=== PATIENT | female | born 1955 | race Caucasian/White ===

== ENCOUNTER 2019-02-01 14:52 | Outpatient (RCR) | payer MEDICARE, MEDICAID, SELFPAY | END 2019-02-14 00:01 | LOC: WOUND 14:52 | PROVIDERS: Family Provider Family Medicine; Visit Provider Nurse Practitioner Family | DX: T81.31XA Disruption of external operation (surgical) wound, not elsewhere classified, initial encounter (principal); Y83.8 Other surgical procedures as the cause of abnormal reaction of the patient, or of later complication, without mention of misadventure at the time of the procedure; E11.621 Type 2 diabetes mellitus with foot ulcer; L97.522 Non-pressure chronic ulcer of other part of left foot with fat layer exposed | CPT/HCPCS: 11042; 87070; 87077; 87176; 87186 ×3; 87205; G0463 ==

== ENCOUNTER 2019-02-20 08:53 | Outpatient (RCR) | payer MEDICARE, MEDICAID, SELFPAY | END 2019-03-17 23:59 | disposition home or self-care (01) | LOC: WOUND 08:53 | PROVIDERS: Family Provider Family Medicine; PCP Family Medicine; Visit Provider Nurse Practitioner Family | DX: T81.31XA Disruption of external operation (surgical) wound, not elsewhere classified, initial encounter (principal); Y83.8 Other surgical procedures as the cause of abnormal reaction of the patient, or of later complication, without mention of misadventure at the time of the procedure; I96 Gangrene, not elsewhere classified; E11.621 Type 2 diabetes mellitus with foot ulcer; L97.522 Non-pressure chronic ulcer of other part of left foot with fat layer exposed | CPT/HCPCS: 11042; J2250 ==

== ENCOUNTER 2019-03-15 09:36 | Inpatient (IN) | payer MEDICARE, MEDICAID, SELFPAY ==
[2019-03-15] VITALS (50 sets, daily range): BP systolic 59–115; BP diastolic 38–72; PULSE 54–198; RESP 14–30; TEMP 36.1–36.8; O2SAT 99–100; BMI 37.8
--- NOTE | 2019-03-15 09:37 | ED_ITS ---
Entered by Bridgette Yanez, acting as scribe for HPI - General Adult General: Chief complaint: General Medical Stated complaint: post op bleed History of Present Illness: HPI narrative: 63 yo female presents with post op bleeding. Pt had surgery about 5 days ago, pt began bleeding today. Pt is lethargic. Patient appears pale clinically is in hemorrhagic shock. There is a large amount of blood about the bed clothing and about ABDs and towels that are packed in the groin along the wound on the left groin. There is a wound VAC in the distal portion of the wound there is no active bleeding at this time. Patient is lethargic she does use some verbal short-billed her responses. She tells me she had a leg surgery several weeks ago in [place]. complaint: post op bleeding Onset (ago): hour(s) Location: lower extremity Severity: severe Review of Systems General: Reports: ROS unobtainable due to mental status Skin/Breast: Reports: changes in skin color (pale) PFS ED PFSH: Statuses (acute, chronic, etc) shown below reflect problem list status as previously entered and may not be historically accurate Medical History Accidental loss of central line (Acute) Arterial thrombosis (Acute) Chronic diastolic CHF (congestive heart failure) (Acute) Chronic venous insufficiency (Acute) COPD (chronic obstructive pulmonary disease) (Acute) Diabetic polyneuropathy associated with type 2 diabetes mellitus (Acute) Dyslipidemia (Acute) Fibromyalgia (Acute) GERD (gastroesophageal reflux disease) (Acute) Major depression, recurrent (Acute) Microcytic anemia (Acute) Multiple lung nodules on CT (Acute) PAD (peripheral artery disease) (Acute) Renovascular hypertension (Acute) Sleep apnea (Acute) Thrombocytopenia (Acute) TIA (transient ischemic attack) (Acute) Surgical History History of femoropopliteal bypass (Acute) Status post femoral-popliteal bypass surgery (Acute) Social History Smoking and tobacco status: unknown if ever smoked Alcohol intake: never Physical Exam Const: EXAM LIMITATIONS: altered mental status (lethargic) GENERAL APPEARANCE: lethargic ORIENTATION/CONSCIOUSNESS: Yes lethargic HENMT: COMMON NORMALS: normocephalic, head/scalp atraumatic and hearing grossly normal bilaterally HEAD & SCALP: normocephalic and atraumatic Eye: COMMON NORMALS: PERRL, EOMs intact bilaterally, conjunctivae normal and no scleral icterus CONJUNCTIVA: Yes conjunctivae normal PUPIL: Yes PERRL Neck/C-Spine: COMMON NORMALS: full ROM, no lymphadenopathy, supple and no JVD Lymph: LYMPHATIC: no lymphadenopathy noted and no lymphedema noted Chest: CHEST: Yes symmetrical chest wall rise Resp: COMMON NORMALS: clear to auscultation bilaterally AUSCULTATION: clear to auscultation bilaterally Cardio: COMMON NORMALS: no JVD RATE: tachycardic GI: COMMON NORMALS: soft to palpation and no hepatosplenomegaly AUSCULTATION: Yes normoactive bowel sounds PALPATION: Yes soft, No tender, No guarding and Yes no hepatosplenomegaly Extremity: NARRATIVE EXTREMITY EXAM: There is an open wound extending from the groin to the distal two thirds of the thigh there is some foam packing the edges are granulated there is a large amount of coagulated blood in the transfer sheet and in a closing around her. There is no active bleeding at this time I cannot palpate a femoral pulse very well. There is a wound VAC in the distal part of the incision. Neuro: SENSORIUM/ORIENTATION: Yes lethargic Skin: COMMON NORMALS: no rashes or lesions noted GENERAL SKIN EXAM: no rashes or lesions noted and pallor Procedures Central Line Placement Left IJ: Time Out Performed: No Patient Placed on Monitor/Pulse Ox: Yes MD Prep: mask, gown and gloves Central Line Prep: Chlorhexidine scrub and sterile drapes applied Local Anesthetic: lidocaine 1% Ultrasound Used for Placement: Yes Central Line Lumen Inserted: triple Post Procedure: sutured in place, good blood return, all ports aspirated, flushed, capped and sterile dressing applied Complications: none Additional Comments: The patient's overall condition chest x-ray was not able to be done while she was in the emergency room that I could review to confirm placement. Course ED course: Patient was initially resuscitated with blood products and a normal saline. Central line placed see the note. Dr. Miller and Dr. Naylor consulted once patient resuscitation was adequate it was decided to bring patient to the Hydrology Technician directly from the ER to do an aortic lower extremity runoff CT they can identify the problem. At the same time my scribe in the ER worked in securing old records so we would have a better understanding of what surgery she had. Vital Signs: Vital signs: Vital Signs Temperature 104.2 F H 03/16/19 17:45 Pulse Rate 0 L 03/17/19 03:50 Respiratory Rate 0 L 03/17/19 03:50 Blood Pressure 71/37 03/16/19 22:30 Pulse Oximetry 0 L 03/17/19 03:50 MDM - General Adult Lab Data: Labs: Lab Results 03/15/19 03/15/19 03/15/19 Range/Units 09:35 09:35 09:35 WBC 18.0 H (4.0-10.0) 10^3/ uL RBC 2.80 L (4.1-5.3) 10^6/u L Hgb 7.4 L (11.5-15.3) g/dL Hct 25.6 L (37.0-47.0) % MCV 91.4 (81-99) fL MCH 26.4 L (28.0-34.0) pg MCHC 28.9 L (30.0-36.0) g/dL RDW 18.0 H (12.1-15.1) % Plt Count 417 H (130-400) 10^3/c mm MPV 10.2 (7.4-10.4) fL Neut % (Auto) 63.7 % Lymph % (Auto) 26.5 % [place] % (Auto) 8.4 % Eos % (Auto) 0.0 % Baso % (Auto) 0.4 % Neut # (Auto) 11.5 H (1.8-7.7) 10^3/u L Lymph # (Auto) 4.8 (0.8-4.8) 10^3/u L [place] # (Auto) 1.5 H (0.2-0.9) 10^3/u L Eos # (Auto) 0.0 (0.0-0.8) 10^3/u L Baso # (Auto) 0.1 (0.0-0.1) 10^3/u L Nucleated RBC % (a uto) 0.1 % Nucleated RBCs # 0.0 /100WBC PT 15.30 H (10.5-13.3) SECO NDS INR 1.17 (0.8-1.2) APTT 26.7 (23.9-36.7) SECO NDS Sodium (136-145) mmol/L Potassium (3.5-5.1) mmol/L Chloride (98-107) mmol/L Carbon Dioxide (22-29) mmol/L Anion Gap (5-19) BUN (8-23) mg/dL Creatinine (0.5-0.9) mg/dL GFR Calculation (90-130) mL/min Glucose (74-106) mg/dL Calculated Osmolal ity (285-295) mOsm/k g Calcium (8.5-10.5) mg/dL Blood Type AB Positive Antibody Screen Positive Antibody Identific ation Anti-E Antigen Identifica tion E Antigen - NEGAT SHERLY Crossmatch See Detail 03/15/19 Range/Units 09:35 WBC (4.0-10.0) 10^3/ uL RBC (4.1-5.3) 10^6/u L Hgb (11.5-15.3) g/dL Hct (37.0-47.0) % MCV (81-99) fL MCH (28.0-34.0) pg MCHC (30.0-36.0) g/dL RDW (12.1-15.1) % Plt Count (130-400) 10^3/c mm MPV (7.4-10.4) fL Neut % (Auto) % Lymph % (Auto) % [place] % (Auto) % Eos % (Auto) % Baso % (Auto) % Neut # (Auto) (1.8-7.7) 10^3/u L Lymph # (Auto) (0.8-4.8) 10^3/u L [place] # (Auto) (0.2-0.9) 10^3/u L Eos # (Auto) (0.0-0.8) 10^3/u L Baso # (Auto) (0.0-0.1) 10^3/u L Nucleated RBC % (a uto) % Nucleated RBCs # /100WBC PT (10.5-13.3) SECO NDS INR (0.8-1.2) APTT (23.9-36.7) SECO NDS Sodium 136 (136-145) mmol/L Potassium 3.9 (3.5-5.1) mmol/L Chloride 91 L (98-107) mmol/L Carbon Dioxide 26 (22-29) mmol/L Anion Gap 22.9 H (5-19) BUN 24 H (8-23) mg/dL Creatinine 1.1 H (0.5-0.9) mg/dL GFR Calculation 49.8 L (90-130) mL/min Glucose 373 H (74-106) mg/dL Calculated Osmolal ity 294 (285-295) mOsm/k g Calcium 8.6 (8.5-10.5) mg/dL Blood Type Antibody Screen Antibody Identific ation Antigen Identifica tion Crossmatch Discharge Plan Discharge Patient Disposition: Admitted As Inpatient Admit Provider: Elena Layne Clinical Impression: Post-op bleeding, Status post femoral-popliteal bypass surgery, Hemorrhagic shock Condition: Stable Interventions: ED Discharge Assessment Last Done: 03/15/19 11:01 Discharge Date/Time: 03/15/19 15:17 Coding Level of Care Code ED Casting And Pasting Supervisor for Chg Fwd The documentation recorded by the Beau franco Kialy, accurately reflects the service I personally performed and the decisions made by Naveed noriega Curtis L, Mar 15, 2019 09:36
[2019-03-15] MEDS: vancomycin 1,000 MG in sodium chloride 0.9% 250 ML 250 MG IV (10:44)
[2019-03-15 10:49] LABS: INR 1.17 (0.8-1.2); Partial Thromboplastin Time 26.7 SECONDS (23.9-36.7)
[2019-03-15 10:50] LABS: Basophils # 0.1 10^3/uL (0.0-0.1); Basophils % 0.4 %; Hematocrit 25.6 % (37.0-47.0); Hemoglobin 7.4 g/dL (11.5-15.3); Lymphocytes # 4.8 10^3/uL (0.8-4.8); Lymphocytes % 26.5 %; Mean Corpuscular HGB Conc 28.9 g/dL (30.0-36.0); Mean Corpuscular Hemoglobin 26.4 pg (28.0-34.0); Mean Corpuscular Volume 91.4 fL (81-99); Mean Platelet Volume 10.2 fL (7.4-10.4); Monocytes # 1.5 10^3/uL (0.2-0.9); Monocytes % 8.4 %; Neutrophils # 11.5 10^3/uL (1.8-7.7); Neutrophils % 63.7 %; Nucleated Red Blood Cells % 0.1 %; Platelet Count 417 10^3/cmm (130-400)
[2019-03-15 10:55] LABS: Anion Gap 22.9 (5-19); Blood Urea Nitrogen 24 mg/dL (8-23); Calcium 8.6 mg/dL (8.5-10.5); Carbon Dioxide 26 mmol/L (22-29); Chloride 91 mmol/L (98-107); Glomerular Filtration Rate 49.8 mL/min (90-130); Glucose 373 mg/dL (74-106); Osmolality Calculated 294 mOsm/kg (285-295); Potassium 3.9 mmol/L (3.5-5.1); Sodium 136 mmol/L (136-145)
--- NOTE | 2019-03-15 14:16 | PM.HP ---
Providers/Chief Complaint Admitting Physician: Angela Primary Care Provider: Consuelo England DO Chief Complaint: post op bleed History of Present Illness Shelby Contreras is a 63 year old female who presented to the emergency room this morning with acute bleeding from her left groin. She is status post left femoral to distal popliteal bypass on January 23. Apparently, she developed wound breakdown and underwent initial debridement about 5 days postop. She also underwent further debridement on March 06. She was discharged to home 2 days ago on March 13. Wound VAC dressing change was performed by home health services yesterday. According to her , when she awoke this morning after breakfast, while sitting on the couch, she developed acute bleeding from her left groin. This was described as extensive. EMS was called and she presented to the emergency department. Initial blood pressure by EMS on site was 60mmHg and again was the same upon arrival to the ER. Acute resuscitation was performed as well as direct pressure being held in the left groin region where a wound VAC dressing was in place. Vernon-Synephrine was administered as well as type specific blood. I was called urgently by Dr. Lucio from the ER staff for acute evaluation. After initial rapid inspection, I recommended proceeding to the catheterization laboratory to determine the site of bleeding and possibly providing endovascular occlusion if so required. I consulted with my colleague Dr. Layne who was gracious enough to help expedite this. Remainder of my review of systems and family history as well as past history is obtained from chart review and discussions with the family. Ms. Contreras was not capable of providing any further information as she was in near extremis. This history and physical dictation is performed post procedure as presentation and proceeding to the catheterization laboratory and symptom aspiration was performed and a rapid and flowing fashion. Review of Systems General: Reports: ROS unobtainable due to medical condition (I did confer with her post procedure. Her activities are limited.) Medications/Allergies Allergies Allergy/AdvReac Type Severity Reaction Status Date / Time adhesive tape Allergy Unknown Verified 02/16/19 12:33 Penicillins Allergy Unknown Verified 02/16/19 12:33 scopolamine Allergy Unknown Verified 02/16/19 12:33 PFSH Acute PFSH: Statuses (acute, chronic, etc) shown below reflect problem list status as previously entered and may not be historically accurate Medical History (Updated 03/15/19 @ 14:25 by Kd Miller MD) Arterial thrombosis (Acute) Chronic diastolic CHF (congestive heart failure) (Acute) Chronic venous insufficiency (Acute) COPD (chronic obstructive pulmonary disease) (Acute) Diabetic polyneuropathy associated with type 2 diabetes mellitus (Acute) Dyslipidemia (Acute) Fibromyalgia (Acute) GERD (gastroesophageal reflux disease) (Acute) Major depression, recurrent (Acute) Microcytic anemia (Acute) Multiple lung nodules on CT (Acute) PAD (peripheral artery disease) (Acute) Renovascular hypertension (Acute) Sleep apnea (Acute) Thrombocytopenia (Acute) TIA (transient ischemic attack) (Acute) Surgical History (Updated 03/15/19 @ 14:23 by Kd Miller MD) History of femoropopliteal bypass (Acute) Status post femoral-popliteal bypass surgery (Acute) Social History (Updated 02/21/19 @ 13:48 by Huong Echeverria LPN) Smoking and tobacco status: unknown if ever smoked Alcohol intake: never Vitals/I&O/Wt Last Vital Signs Pulse 54 L 03/15/19 11:01 Resp 16 03/15/19 13:58 BP 115/72 03/15/19 11:01 Pulse Ox 99 03/15/19 11:01 Weight last 48 hrs Weight 220 lb Physical Exam Narrative: EXAM NARRATIVE: Initial preoperative exam was performed very quickly while the patient was on the catheterization laboratory table being prepared for anesthesia and subsequent induction for planned angiography and groin exploration. She has an extensive wound VAC in place from the knee up to the left groin region with active bleeding which is feel the wound VAC container. Direct pressure is being held for control during resuscitative efforts. This is a dire situation. Urinary Catheter Management^: Kaye: Cath Placed During This Visit: no Data : 03/15/19 09:35 03/15/19 09:35 A&P Assessment and plan (1) Post-op bleeding: Postop bleeding left groin status post left femoropopliteal bypass, postop day #20. Acute nature bleeding requires urgent angiography and exploration. This was discussed very frankly with the and family who provided consent. Status: Acute (2) Status post femoral-popliteal bypass surgery: 20 days status post left femoral-popliteal bypass with vein angioplasty with subsequent wound dehiscence and now postop bleeding Status: Acute Code(s): Z95.828 - Presence of other vascular implants and grafts Attestations Medical Necessity Statement*: Extensive postop bleeding postop day #20 status post left femoropopliteal bypass Time Spent in Patient Care: Greater than 35 minutes Coding Level of Care Code Acute Livestock Feeder for Jonathang Fwd Diagnoses Post-op bleeding Status post femoral-popliteal bypass surgery Z95.828
[2019-03-15] MEDS: midazolam 1 mg/mL INJ 2 mL IVP (14:24)
--- NOTE | 2019-03-15 14:26 | P.ANES_ITS ---
Pre-Anesthetic Assessment Pre-Anesthetic Assessment: Height/Weight: Height 1.63 m Weight 99.79 kg Pulse Resp BP Pulse Ox 54 L 16 115/72 99 03/15/19 11:01 03/15/19 13:58 03/15/19 11:01 03/15/19 11:01 Preop Diagnosis: Post op bleed Proposed Procedure: Operation Date: 03/15/19 10:00 Proposed Procedures p Peripheral Diagnostic(Not Applicable) - Elena Layne MD Operation Date: 03/15/19 11:00 Proposed Procedures p Femoral-Popliteal Artery Bypass(Not Applicable) - Kd Miller MD Familial anesthetic complications: unable to ascertain Last intake: unable to ascertain Exam: Additional Exam Findings (including area of procedure): Altered mental status Airway: Additional comments: unable to ascertain Pulmonary: Pulmonary: COPD and Sleep apnea CV/HEM: CV/HEM: CHF, HTN and PVD Metabolic: Metabolic: DM and Morbid obesity Anesthetic Plan: ASA status: V Anesthesia: General Other: Emergency bleed from fem-pop site; patient presented to ER with altered mental status and probable 1+ L blood loss. Central line in placed in ER, 18 IV in placed in ER, blood running through 18 g IV in ER, levo drip on. Risk of > 500 ml blood loss (7ml/kg in children): Yes, adequate IV access and fluids planned Other Pertinent Information: Will plan for RSI and A-line placement Meds/Allergies Current Medications: Current Medications Generic Name Dose Route Start Last Admin Trade Name Freq PRN Reason Stop Dose Admin Norepinephrine Bit artrate 4 mg 254 mls @ 0 mls/h r 03/15/19 09:45 03/15/19 10:59 / Dextrose IV 2 mcg/min .Q0M PATIENCE 7.6 mls/hr Administration Protocol Per Protocol Midazolam HCl 1 mg 03/15/19 14:15 03/15/19 14:24 Versed IVP 1 mg ONCE PRN Administration AGITATION PFSH Anesthesia PFSH: Medical History (Updated 03/15/19 @ 14:25 by Kd Miller MD) Arterial thrombosis (Acute) Chronic diastolic CHF (congestive heart failure) (Acute) Chronic venous insufficiency (Acute) COPD (chronic obstructive pulmonary disease) (Acute) Diabetic polyneuropathy associated with type 2 diabetes mellitus (Acute) Dyslipidemia (Acute) Fibromyalgia (Acute) GERD (gastroesophageal reflux disease) (Acute) Major depression, recurrent (Acute) Microcytic anemia (Acute) Multiple lung nodules on CT (Acute) PAD (peripheral artery disease) (Acute) Renovascular hypertension (Acute) Sleep apnea (Acute) Thrombocytopenia (Acute) TIA (transient ischemic attack) (Acute) Surgical History (Updated 03/15/19 @ 14:23 by Kd Miller MD) History of femoropopliteal bypass (Acute) Status post femoral-popliteal bypass surgery (Acute) Social History (Updated 02/21/19 @ 13:48 by Huong Echeverria LPN) Smoking and tobacco status: unknown if ever smoked Alcohol intake: never Data Anesthesia CBC & Chem 7: 03/15/19 09:35 03/15/19 09:35 Other Labs: Laboratory Results - last 48 hr 03/15/19 03/15/19 03/15/19 09:35 09:35 09:35 WBC 18.0 H RBC 2.80 L Hgb 7.4 L Hct 25.6 L MCV 91.4 MCH 26.4 L MCHC 28.9 L RDW 18.0 H Plt Count 417 H MPV 10.2 Neut % (Auto) 63.7 Lymph % (Auto) 26.5 [place] % (Auto) 8.4 Eos % (Auto) 0.0 Baso % (Auto) 0.4 Neut # (Auto) 11.5 H Lymph # (Auto) 4.8 [place] # (Auto) 1.5 H Eos # (Auto) 0.0 Baso # (Auto) 0.1 Nucleated RBC % (auto) 0.1 Nucleated RBCs # 0.0 PT 15.30 H INR 1.17 APTT 26.7 Sodium Potassium Chloride Carbon Dioxide Anion Gap BUN Creatinine GFR Calculation Glucose Calculated Osmolality Calcium Blood Type AB Positive Antibody Screen Positive Antibody Identification Anti-E Antigen Identification E Antigen - NEGATIVE Crossmatch See Detail 03/15/19 09:35 WBC RBC Hgb Hct MCV MCH MCHC RDW Plt Count MPV Neut % (Auto) Lymph % (Auto) [place] % (Auto) Eos % (Auto) Baso % (Auto) Neut # (Auto) Lymph # (Auto) [place] # (Auto) Eos # (Auto) Baso # (Auto) Nucleated RBC % (auto) Nucleated RBCs # PT INR APTT Sodium 136 Potassium 3.9 Chloride 91 L Carbon Dioxide 26 Anion Gap 22.9 H BUN 24 H Creatinine 1.1 H GFR Calculation 49.8 L Glucose 373 H Calculated Osmolality 294 Calcium 8.6 Blood Type Antibody Screen Antibody Identification Antigen Identification Crossmatch Cardiac Studies: No Data to Display
--- NOTE | 2019-03-15 14:29 | PM.OP ---
Operative Report Date of procedure: 03/15/19 Pre-op Diagnosis: Postop left femoropopliteal bypass with bleeding Post-op diagnosis: same Procedure Done: Left groin exploration with suture control of active bleeding Pathology: none sent Surgeon: Kd Miller Anesthesia: General Estimated blood loss (mL): 500 Tourniquet time: and they agreed for us to proceed. Findings: Active bleeding from a vein patch angioplasty Condition: critical Disposition: ICU Brief History: 53-year-old short statured, obese, diabetic female who is now 20 days status post repeat groin exploration and left femoropopliteal bypass with vein angioplasty utilizing a 6 mm PTFE graft. Patient developed wound dehiscence and subsequently required wound VAC placement and debridements x2 postop. She was discharged home 2 days ago and noted market bleeding this morning from the left groin requiring direct pressure by her as EMS was called. She presented to the ER in dire situation with a blood pressure of 60. She underwent aggressive resuscitation and we were consulted urgently. We recommended formal exploration as well as angiography, all to be performed in the catheterization laboratory. The difficult situation was frankly discussed with and family Procedure: Patient was taken to catheterization laboratory where she underwent general trach anesthesia by Dr. Cabrera from anesthesia department. Left radial arterial line was placed. Appropriate IVs were confirmed. She began receiving packed RBCs after induction and during prepping. Initially, Dr. Layne performed via a right femoral approach aorto angiography and angiography of the left femoral region. There was no sreekanth evidence for extravasation though there was some enlargement at the anastomosis proximally, consistent with a probable patch angioplasty. At the time that we initiate the procedure, we had not received operative reports from [facility]. Following this, with the sheath still in place, I elected to remove the left groin thigh and leg wound VAC where we carefully inspected, particularly groin region, the expected area for bleeding. There was some thrombus removed though with careful inspection other than a rather robust granulation tissue, I could not identify any active bleeding. There was a palpable pulse in the region. This wound was very carefully inspected, handheld irrigation performed, and a wound VAC replaced. As we were finishing replacement wound VAC, active bleeding began occurring again as noted in the wound VAC container. This was there. When she was emerging from anesthesia and had a systolic blood pressure that reached 200 mmHg. At this point, Dr. Cabrera was able to obtain control of her blood pressure with the use of hydralazine. Dr. Layne performed repeat angiography which again showed no sreekanth extravasation though clearly she had substantial bleeding as noted from the wound VAC itself. I again reexplored in the left groin region where upon inspection I could notes active bleeding coming from around the proximal anastomosis, probably at the junction with the vein patch angioplasty. There is substantial granulation tissue at his region and I did not want to further disrupt this area for fear that by totally disrupted and anastomosis. With digital pressure, I placed a #5 Ciara catheter through the area of bleeding into the distal external iliac, and with inflation there was much better control of proximal bleeding. I then performed repair of this bleeding site utilizing 5-0 and 6-0 Prolene suture. The Ciara catheter was removed prior to securing the suture line. Hemostasis was immediately obtained at this time. Wounds were carefully irrigated. I performed positional movement challenges with the left leg with no further evidence for bleeding. After careful irrigation and careful inspection, a second wound VAC was then reapplied. Ms. Contreras was confirmed to be stable and was then transferred to the ICU in critical condition. I did senior counsel very frankly with her and family after the procedure. We will plan to continue with antibiotic therapy and careful observation overnight. I do think she would benefit from [facility] care at discharge which I think would be a safer environment the returning home. Wound VAC dressing changes did require substantial effort with 2-3 people I think this will be difficult to perform in a home setting with home health nursing services.
[2019-03-15] MEDS: lactated ringers 1,000 ML 100 ML IV (14:44)
[2019-03-15 14:46] LABS: ABG PCO2 34.5 mmHg (35-45); ABG PH Result 7.39 (7.35-7.45); Alveolar-Arterial Oxygen Gradi 430.8 mmHg (5-10); Arterial Blood Gas Hematocrit 24.9 % (37-47); Base Excess ABG -3.8 mmol/L (-2.0-2.0); Blood Gas Sample Type Arterial; Blood Gas Tidal Volume 0.5; HCO3 ABG 20.7 mmol/L (22-26); Ionized Calcium Level - ABG 1.1 mmol/L (1.1-1.4); Methemoglobin 0.5 % (0.4-1.5); Oxygen Device VENT; Potassium Level - ABG 4.4 mmol/L (3.5-5.0); Total Hemoglobin 8.1 g/dL (12-16)
[2019-03-15] MEDS: atorvastatin 40 mg Tablet 20 MG PO (15:57)
[2019-03-15] MEDS: ARIPiprazole 2 mg Tablet PO (16:01)
[2019-03-15] MEDS: propofol 1,000 MG/100 ML INJ 3 MG IV (16:14)
[2019-03-15 17:20] LABS: Glucose Point of Care 303 mg/dL (70-110)
[2019-03-15 18:36] LABS: Hematocrit 27.9 % (37.0-47.0)
[2019-03-15] MEDS: sodium chloride 0.9% 100 ML (19:23)
[2019-03-15 20:37] LABS: ABG PCO2 21.2 mmHg (35-45); Alveolar-Arterial Oxygen Gradi 65.3 mmHg (5-10); Arterial Blood Gas Hematocrit 26.6 % (37-47); Base Excess ABG -19.7 mmol/L (-2.0-2.0); Blood Gas Sample Type Arterial; Blood Gas Tidal Volume 0.5; Carboxyhemoglobin 0.9 %THgb (0.4-20.1); HCO3 ABG 7.4 mmol/L (22-26); HGB O2 Sat 98.4 % (95-100); Methemoglobin 0.3 % (0.4-1.5); Oxygen Device VENT; Oxygen Saturation ABG 99.6; Potassium Level - ABG 6.3 mmol/L (3.5-5.0); Total Hemoglobin 8.7 g/dL (12-16)
[2019-03-15 20:45] LABS: ABG PH Result 7.15 (7.35-7.45)
--- NOTE | 2019-03-15 20:46 | XRR_ITS ---
PROCEDURE INFORMATION: Exam: XR Chest, 1 View Exam date and time: 03/15/2019 8:47 PM Age: 63 years old Clinical indication: Device placement; Other: Central line; Additional info: Change TECHNIQUE: Imaging protocol: XR of the chest Views: 1 view. COMPARISON: CR Chest 1 [place] [id number] 07/14/2018 11:32 AM FINDINGS: Tubes, catheters and devices: Intubation with tip 3.1 cm above the benjie. NG tube tip in the mid stomach. Lungs: Calcified granulomas in the left lung base and left hilum. Mild atelectasis or scar in the central left lung. The right lung is clear. Pleural space: Unremarkable. No pleural effusion. No pneumothorax. Heart/Mediastinum: Unremarkable. No cardiomegaly. Bones/joints: Unremarkable. XR/XR chest 1V portable [id number] IMPRESSION: No acute findings.
--- NOTE | 2019-03-15 21:25 | PM.OP ---
Operative Report Date of procedure: 03/15/19 Pre-op Diagnosis: Postop left femoropopliteal bypass with bleeding Post-op diagnosis: same Procedure Done: Right femoral vein triple-lumen central line catheter placement Pathology: none sent Surgeon: Kd Miller Anesthesia: None Complications: None Condition: critical Disposition: ICU Brief History: 63-year-old female who earlier today underwent left groin exploration for acute bleeding status post left femoral-popliteal bypass on February 23 with subsequent wound dehiscence and debridement x2 with a wound VAC in place. She was discharged to home from [facility] on Wednesday. She had a wound VAC dressing change yesterday. She presented to the ER today with market hemorrhage requiring direct pressure and medical resuscitation. A left neck central line was placed by ER staff. She was simply taken operating room where she underwent expiration and and control of bleeding from what appears to probably be an angioplasty of the left common femoral artery. She has been doing recently well in the ICU but but but then developed a precipitous drop in blood pressure along with tachycardia. Fluids were increased and pressor agents were initiated without improvement. Our colleague Dr. Gibson from our hospital service was asked to review a chest x-ray that was obtained by the nursing service and he was concerned that of the central line not being visualized. Upon my arrival, her pressure was in the 60s. I concur with his assessment and we rapidly plan for placement of a right femoral line to allow for further central vascular access. This is being done under emergent condition. Procedure: TYPE OF PLACEMENT: Central WHERE INSERTED: Left femoral vein TUNNELED: No IMAGING UTILIZED: None ANESTHESIA: None REASON FOR PLACEMENT: Loss of central vascular access DESCRIPTION OF PROCEDURE PLACEMENT: All necessary supplies were available prior to start. Hand hygiene was performed prior to starting. Maximum barrier technique including hat, mask, sterile gown, and sterile gloves was utilized by all at the sterile field. Site was was prepped with chlorhexidine and a head to toe drape was placed. Using standard technique, due to the emergent nature and need for vascular access, the right femoral vein was accessed and A wire was then advanced without difficulty. A small incision was then made to facilitate the dilator over which the catheter was placed. The wire was then removed. The catheter was threaded its entire length. All ports were then aspirated showing venous return and were each then flushed with sterile normal saline. The catheter was then sutured in place and a Tegaderm was used to cover the insertion site. Patient tolerated the procedure without difficulty or complication. We immediately began administration of fluids along with packed RBCs and reinitiation of Levophed with prompt rise of her blood pressure from the mid 60s to the low 90s. Sterile dressings were applied. I have stopped reviewed the chest x-ray which is recent been obtained which does not reveal visualization of the left neck line, therefore I removed it. I have counseled with the family.
--- NOTE | 2019-03-15 21:31 | PM.PN ---
Subjective Subjective: Interval history: I was contacted by nursing service evening as Ms. Contreras blood pressure has been steadily decreasing despite fluids, packed RBCs, and Levophed. We are concerned that the left neck line has been dislodged and retracted and no longer providing central vascular access. Chest x-ray was reviewed by Dr. Gisbon who also was quite concerned about this. I elected to rapidly place a right femoral vein triple-lumen catheter with administration of our fluids and pressor agents through this access, with rapid improvement of her hemodynamics. Vitals/I&O/Wt Last Vital Signs Temp 97.9 F 03/15/19 21: Pulse 105 H 03/15/19 21: Resp 28 H 03/15/19 21: BP 84/57 03/15/19: Pulse Ox 100 03/15/19 21:26 03/15/19 03/15/19 03/15/19 06:59 14:59 22:59 Intake Total 350.3 / 350.3 Output Total 150 / 150 Balance 200.3 / 200.3 Weight last 48 hrs Weight 220 lb Physical Exam Neck/C-Spine: OTHER: There is swelling of the left side the neck with early ecchymosis noted. This would be consistent with possible fluid extravasation from a dislodged central line. Resp: COMMON NORMALS: clear to auscultation bilaterally AUSCULTATION: clear to auscultation bilaterally OTHER: Despite concerns of the left neck line, her lungs are quite clear bilaterally. Cardio: RATE: tachycardic Urinary Catheter Management^: Kaye: Cath Placed During This Visit: no Data : 03/15/19 18:15 03/15/19 09:35 A&P Assessment and plan (1) Accidental loss of central line: Decreased hemodynamics with confirmation of loss of left neck central line. Right femoral central line was placed rapidly for resuscitation. Family has been counseled. I have removed the left neck line which indeed had been distracted a substantial distance and could not be visualized on chest x-ray. Lungs are otherwise clear and cardiac silhouette is stable and normal. Currently responding well to fluid challenge and pressor agents. Status: Acute Code(s): T82.898A - Other specified complication of vascular prosthetic devices, implants and grafts, initial encounter Attestations Medical Necessity Statement*: Status post left femoral-popliteal bypass with vein angioplasty and subsequent dehiscence with acute bleeding requiring exploration earlier today Time Spent in Patient Care: Greater than 35 minutes Coding Level of Care Code Acute Loan Processing Supervisor for Chg Fwd Diagnoses Accidental loss of central line T82.898A
--- NOTE | 2019-03-15 21:44 | PM.CONSULT ---
Providers/Reason For Consult Consulting Physican/Specialty*: hospitalist Reason for Consult*: SHock Attending Physician: Kd Miller MD Primary Care Provider: Consuelo England DO History of Present Illness History of Present Illness Shelby Contreras is a 63 year old female who has a history of left femoropopliteal bypass in June 2018 and then recently developed leg pain at rest, ultrasound showed femoropopliteal bypass is occluded. She was having difficulty walking in her home from living room to the bathroom. She used a rolling chair to maneuver throughout her kitchen. Left leg is more swollen with edema and extending into the foot. recently had a left femoral popliteal bypass with venous angioplasty at [facility], had wound dehiscence, status post debridement on 03/06 was discharged home on 03/13 from [facility] with wound VAC,& home health services. Today she was sitting on her couch when she started bleeding from her left groin area (home health services recently changed her wound VAC dressing yesterday) EMS was called and she was brought to ER. She was taken straight to the OR Dr. Miller was consulted by ER, they were able to achieve appropriate hemostasis after exploration. Postoperatively she was sent to ICU, she started becoming hypotensive, while she was on norepinephrine, fluids and blood worsening at the bedside, chest x-ray was obtained which did not locate her central line, Dr. Miller evaluated the patient, placed a right femoral venous access. Her left-sided central line that was placed by ER has been dislodged and there is some extravasation of norepinephrine and subcutaneous tissue. There is no active drainage from left-sided triple-lumen. Currently she is getting blood transfusion, fluids, 1 amp of bicarb, vasopressors are being titrated off. Hospital service was requested to co-manage her. 02/23/2018 procedure at [facility] left common femoral artery exposure Left common femoral endarterectomy with vein patch angioplasty Left common femoral to below knee popliteal bypass graft with 6 mm PTFE She had postoperative wound infection excision of skin and subcutaneous tissue and debridement was done with placement of wound VAC on 03/06 2 m blood loss 100 mL Review of Systems General: Reports: ROS unobtainable due to endotracheal tube Meds/Allergies Home Medications and Allergies Home Medications Medication Instructions Recorded Confirmed Type albuterol sulfate 90 mcg/actuation 2 - 4 puff INHALATION QID PRN gm 02/21/19 02/21/19 History aerosol inhaler aripiprazole 2 mg tablet 2 mg PO ONCE 02/21/19 02/21/19 History aspirin 325 mg tablet 325 mg PO ONCE tab 02/21/19 02/21/19 History atenolol 50 mg tablet 50 mg PO ONCE tab 02/21/19 02/21/19 History blood sugar diagnostic #10 each 02/21/19 02/21/19 History citalopram 40 mg tablet 40 mg PO ONCE tab 02/21/19 02/21/19 History ferrous sulfate 325 mg (65 mg 325 mg PO ONCE tab 02/21/19 02/21/19 History iron) tablet fluticasone furoate 100 1 inh INHALATION Q24H 02/21/19 02/21/19 History mcg-vilanterol 25 mcg/dose inhalation powder furosemide 40 mg tablet 80 mg PO BID tab 02/21/19 02/21/19 History hydrocodone 5 mg-acetaminophen 325 1 tab PO Q4H PRN 02/21/19 02/21/19 History mg tablet hydroxyzine HCl 25 mg tablet 25 mg PO BID 02/21/19 02/21/19 History insulin glargine U-300 conc 300 28 unit SUBCUT ONCE 02/21/19 02/21/19 History unit/mL (3 mL) subcutaneous pen insulin lispro 100 unit/mL 10 unit SUBCUT QID ml 02/21/19 02/21/19 History subcutaneous pen ipratropium 0.5 mg-albuterol 3 mg 3 ml INHALATION BID PRN ml 02/21/19 02/21/19 History (2.5 mg base)/3 mL nebulization soln lancets 30 gauge #25 each 02/21/19 02/21/19 History meloxicam 7.5 mg tablet 7.5 mg PO BID PRN tab 02/21/19 02/21/19 History metformin 1,000 mg tablet,extended 1,000 mg PO BID 02/21/19 02/21/19 History release 24hr omega 6-msa-ubc-fish oil 1,000 mg 1 cap PO ONCE cap 02/21/19 02/21/19 History (120 mg-180 mg) capsule omeprazole 20 mg capsule,delayed 20 mg PO ONCE cap 02/21/19 02/21/19 History release polyethylene glycol 3350 17 17 gm PO BID 02/21/19 02/21/19 History gram/dose oral powder pramipexole 1 mg tablet 1 mg PO ONCE tab 02/21/19 02/21/19 History pregabalin 50 mg capsule 50 mg PO BID 02/21/19 02/21/19 History ranitidine HCl 150 mg tablet 150 mg PO ONCE PRN tab 02/21/19 02/21/19 History simvastatin 20 mg tablet 20 mg PO .QHS tab 02/21/19 02/21/19 History sitagliptin 100 mg tablet 100 mg PO ONCE 02/21/19 02/21/19 History triamterene 37.5 1 tab PO QAM 02/21/19 02/21/19 History mg-hydrochlorothiazide 25 mg tablet Allergies Allergy/AdvReac Type Severity Reaction Status Date / Time adhesive tape Allergy Unknown Verified 02/16/19 12:33 Penicillins Allergy Unknown Verified 02/16/19 12:33 scopolamine Allergy Unknown Verified 02/16/19 12:33 Current Medications Current Medications Generic Name Dose Route Start Last Admin Trade Name Freq PRN Reason Stop Dose Admin Atorvastatin Calcium 20 mg 03/15/19 16:00 03/15/19 15:57 Lipitor PO 20 mg DAILY PATIENCE Administration Lactated Ringer's 1,000 mls @ 100 mls/hr 03/15/19 15:00 03/15/19 15:02 Lactated Ringers IV Not Given .Q10H PATIENCE Propofol 1,000 mg in 100 mls @ 0 mls/hr 03/15/19 15:00 03/15/19 16:20 Diprivan IV 10 mcg/kg/min .Q0M PATIENCE 6 mls/hr Titration Protocol Per Protocol Insulin Aspart 0 unit 03/15/19 18:00 03/15/19 19:08 Novolog SUBCUT 14 unit WM&BEDTIME PATIENCE Administration Protocol Midazolam HCl 1 mg 03/15/19 14:15 03/15/19 14:24 Versed IVP 1 mg ONCE PRN Administration AGITATION PFSH Acute PFSH: Statuses (acute, chronic, etc) shown below reflect problem list status as previously entered and may not be historically accurate Medical History Accidental loss of central line (Acute) Arterial thrombosis (Acute) Chronic diastolic CHF (congestive heart failure) (Acute) Chronic venous insufficiency (Acute) COPD (chronic obstructive pulmonary disease) (Acute) Diabetic polyneuropathy associated with type 2 diabetes mellitus (Acute) Dyslipidemia (Acute) Fibromyalgia (Acute) GERD (gastroesophageal reflux disease) (Acute) Major depression, recurrent (Acute) Microcytic anemia (Acute) Multiple lung nodules on CT (Acute) PAD (peripheral artery disease) (Acute) Renovascular hypertension (Acute) Sleep apnea (Acute) Thrombocytopenia (Acute) TIA (transient ischemic attack) (Acute) Surgical History History of femoropopliteal bypass (Acute) Status post femoral-popliteal bypass surgery (Acute) Social History Smoking and tobacco status: unknown if ever smoked Alcohol intake: never Vitals/I&O/Wt Last Vital Signs Temp 97.9 F 03/15/19 21:26 Pulse 105 H 03/15/19 21:26 Resp 28 H 03/15/19 21:26 BP 84/57 03/15/19 21:26 Pulse Ox 100 03/15/19 21:26 03/15/19 03/15/19 03/15/19 06:59 14:59 22:59 Intake Total 350.3 / 350.3 Output Total 150 / 150 Balance 200.3 / 200.3 Weight last 48 hrs Weight 99.79 kg Physical Exam Narrative: EXAM NARRATIVE: Morbid obese female currently intubated and sedated She has extravasation of norepinephrine and subcutaneous tissue of her neck and upper chest At the bedside fluids are running along bicarb, blood and norepinephrine, Vernon-Synephrine which is being held off She is sinus tachycardia, heart rate fluctuating between 1 10-1 15, S1-S2 sinus tachycardia, Pedal pulses are very weak especially on the left side previous Doppler showed monophasic signals it is a bit colder as per Dr. Miller's assessment it is worsened from this morning She has a new right-sided femoral line access 1+ edema of lower extremities Sister breath sounds Abdomen obese, soft without distention Skin: Has multiple petechiae and purpura around subcutaneous neck tissue and upper chest Neuro exam could not be done Urinary Catheter Management^: Kaye: Cath Placed During This Visit: no A&P Assessment and plan (1) Post-op bleeding: Status: Acute (2) Accidental loss of central line: Status: Acute Code(s): T82.898A - Other specified complication of vascular prosthetic devices, implants and grafts, initial encounter (3) Status post femoral-popliteal bypass surgery: Status: Acute Code(s): Z95.828 - Presence of other vascular implants and grafts Additional A&P Information Hemorrhagic shock Currently hemoglobin is stable, blood pressure systolic 85/56mmhg, we were able to hold off Vernon-Synephrine, currently she is on fluids, D5 and Levophed Blood running at the bedside via right femoral vein access Monitor urine output No active bleeding from the surgical site, Because of history of MRSA positive I would use vancomycin and amikacin she is allergic to penicillin, Metabolic acidosis due to lactic acidemia Will use 1 amp of bicarb with D5 Monitor sodium Monitor lactic acid Type III respiratory failure Intubated and sedated Not ready to be weaned off because of current use of vasopressors Accidental loss of left-sided central venous access with extravasation into subcutaneous neck and upper chest area Right femoral vein has been accessed by Dr. Miller Status post revision of femoral-popliteal bypass surgery with postoperative complications with wound dehiscence and groin infection with abscess drainage, MRSA was positive Currently her left foot is colder as compared to the right, will reassess after turning off vasopressors, currently very weak pulse 1+ dorsalis pedis We will do Dopplers every day Not candidate to be on any kind of anticoagulation Currently receiving blood transfusion Close monitoring for left foot Family is receptive of patient's guarded prognosis and critical situation Consult Attestations Medical Necessity Statement: As per Dr. Miller's plan Time Spent in Patient Care: 40 Coding Level of Care Code Acute Fire Extinguisher Inspector for Chg Fwd Diagnoses Post-op bleeding Accidental loss of central line T82.898A Status post femoral-popliteal bypass surgery Z95.828
--- NOTE | 2019-03-15 22:19 | PM.MISC ---
Miscellaneous Note Purpose of Documentation: We will continue with volume resuscitation. We have been able to turn off 1 of our vasopressor agents. Systolic blood pressure is now 96 and a heart rate of 102. She is acidotic and we are preparing to give to amps of bicarbonate. We have placed a Cheetah monitor on and her cardiac index is reading 4. I have updated the family periodically throughout this resuscitation. Long-term outlook clearly remains questionable as she has had a substantial blood loss beginning early this morning with the acute hemorrhage from her left groin. Her left leg is somewhat cooler than the right though it is not mottled. This will need to be observed carefully and may be exacerbated by the repair required for the hemorrhage earlier today. It may also be worsened by the requirement for the vasopressor, which hopefully will be able to continue to decrease through the night. I do not think we can proceed with any attempts to wean the ventilator for planned extubation due to this need for continued resuscitation, hemodynamic instability, as well as probable fluid extravasation in the left neck from the retracted left neck central line. Family is aware. I answered all questions. The gravity of the situation has been clearly stated and they seem quite aware.
[2019-03-15] MEDS: sodium chloride 0.9% 100 ML 200 ML ×2 (22:23→22:24)
[2019-03-15] MEDS: albumin 12.5 GM/250 ML VIAL IV (22:24)
[2019-03-15] MEDS: pantoprazole 40 mg SDV IVP (22:25)
[2019-03-15] MEDS: sodium bicarbonate 150 MEQ in dextrose 5% 1,000 ML IV (22:35)
[2019-03-15] MEDS: phenylephrine inj 25 MG in sodium chloride 0.9% 250 ML 24.2 MG IV (22:55)
--- NOTE | 2019-03-15 23:05 | P.MISC_ITS ---
Miscellaneous Note Purpose of Documentation: Hemodynamics are about the same with a systolic blood pressure running from about 78-92. Heart rate is consistently been at around 100 which is substantially improved. Numerous family members have visited at bedside and I have counseled. We are also administering a bicarbo cira infusion currently. We will be repeating ABG and laboratory data later. We will make no plans for any substantial changes over the next 24 to 48 hours. I do expect she will have substantial fluid extravasation and third spacing and I did discuss this with the family. I do believe this will require continuous intravascular volume replacement with this ongoing capillary leak. I greatly appreciate the expertise and oversight of Dr. Gibson and our hospitalist colleagues.
[2019-03-16] VITALS (65 sets, daily range): BP systolic 53–128; BP diastolic 27–61; PULSE 0–109; RESP 20–31; TEMP 36.7–40.1; O2SAT 10–100
--- NOTE | 2019-03-16 00:27 | PC.NURSE ---
Unit [id number] and [id number] ran emergent with Dr Miller at bedside.
[2019-03-16] MEDS: albumin 12.5 GM/250 ML VIAL IV ×3 (00:56→09:48)
[2019-03-16] MEDS: morphine 4 mg/mL SDV 1 mL 2 MG IVP (02:44)
[2019-03-16 03:41] LABS: Glucose Point of Care 424 mg/dL (70-110)
[2019-03-16 03:49] LABS: Basophils # 0.1 10^3/uL (0.0-0.1); Basophils % 0.2 %; Hematocrit 30.2 % (37.0-47.0); Hemoglobin 10.1 g/dL (11.5-15.3); Lymphocytes # 1.8 10^3/uL (0.8-4.8); Lymphocytes % 6.9 %; Mean Corpuscular HGB Conc 33.4 g/dL (30.0-36.0); Mean Corpuscular Hemoglobin 28.5 pg (28.0-34.0); Mean Platelet Volume 10.5 fL (7.4-10.4); Monocytes # 1.4 10^3/uL (0.2-0.9); Monocytes % 5.4 %; Neutrophils # 22.4 10^3/uL (1.8-7.7); Neutrophils % 85.4 %; Nucleated Red Blood Cells # 0.9 /100WBC; Nucleated Red Blood Cells % 3.5 %; Platelet Count 168 10^3/cmm (130-400); Red Blood Count 3.55 10^6/uL (4.1-5.3); Red Cell Distribution Width 15.1 % (12.1-15.1); White Blood Count 26.3 10^3/uL (4.0-10.0)
--- NOTE | 2019-03-16 03:57 | PC.NURSE ---
1999 Angela notified by this RN of decreasing BP. Order for Vernon, stat EKG and stat ABG. [address] Miller notified of continued decreasing arterial and cuff BP 60's systolic. This RN concerned central line no longer in place. Given verbal order for stat xray to determine.
[2019-03-16 04:03] LABS: Anion Gap 27.6 (5-19); Blood Urea Nitrogen 32 mg/dL (8-23); Calcium 7.2 mg/dL (8.5-10.5); Carbon Dioxide 18 mmol/L (22-29); Chloride 94 mmol/L (98-107); Glomerular Filtration Rate 18.5 mL/min (90-130); Glucose 356 mg/dL (74-106); Magnesium 1.7 mg/dL (1.7-2.3); Mean Corpuscular Volume 85.1 fL (81-99); Osmolality Calculated 290 mOsm/kg (285-295); Potassium 5.6 mmol/L (3.5-5.1); Sodium 134 mmol/L (136-145)
[2019-03-16 04:22] LABS: Lactic Acid 9.9 mmol/L (0.5-2.2)
[2019-03-16 04:44] LABS: INR 3.53 (0.8-1.2)
[2019-03-16] MEDS: phenylephrine inj 25 MG in sodium chloride 0.9% 250 ML 48.5 MG IV (04:58)
[2019-03-16 05:28] LABS: ABG PCO2 22.6 mmHg (35-45); Alveolar-Arterial Oxygen Gradi 56.4 mmHg (5-10); Arterial Blood Gas Hematocrit 29.2 % (37-47); Base Excess ABG -4.2 mmol/L (-2.0-2.0); Blood Gas Sample Type Arterial; Blood Gas Tidal Volume 0.5; Carboxyhemoglobin 0.7 %THgb (0.4-20.1); HCO3 ABG 17.7 mmol/L (22-26); HGB O2 Sat 97.1 % (95-100); Ionized Calcium Level - ABG 0.9 mmol/L (1.1-1.4); Methemoglobin 0.4 % (0.4-1.5); Oxygen Device VENT; Oxygen Saturation ABG 98.2; PO2 ABG 83.8 mmHg (80.0-100.0); Potassium Level - ABG 4.7 mmol/L (3.5-5.0); Total Hemoglobin 9.5 g/dL (12-16)
[2019-03-16] MEDS: sodium bicarbonate 150 MEQ in dextrose 5% 1,000 ML IV (05:47)
--- NOTE | 2019-03-16 06:37 | PM.PN ---
Subjective Subjective: Interval history: Hemodynamics have been reasonably stable since about 9:30 PM last night. Right femoral central line appears to be working well. I have previously removed the dislodged left neck line. She has a conjugate scanning gaze, so I am somewhat concerned about her neurologic status. She is requiring pressor agents but has responded well to volume challenges and packed RBCs. No evidence for active bleeding. She has had expected detriment of her renal function and is noticed that her INR is over 3 this morning. Full ventilatory support though on room air. I have counseled with the family throughout the evening. I greatly appreciate the expertise of our hospitalist colleagues and Dr. Linares. Vitals/I&O/Wt Last Vital Signs Temp 100.4 F H 03/16/19 04:30 Pulse 90 03/16/19 04:30 Resp 27 H 03/16/19 05:40 BP 78/49 03/16/19 04:30 Pulse Ox 98 03/16/19 04:30 03/15/19 03/15/19 03/16/19 14:59 22:59 06:59 Intake Total 894.703 / 182.243 4992.323 / 2291.026 Output Total 150 / 150 10 / 160 Balance 744.703 / 801.822 5702.323 / 2131.026 Weight last 48 hrs Weight 220 lb Physical Exam Resp: COMMON NORMALS: clear to auscultation bilaterally AUSCULTATION: clear to auscultation bilaterally OTHER: Remains intubated with full ventilatory support Cardio: COMMON NORMALS: regular rate, regular rhythm and S1 normal heart sound RATE: regular rate RHYTHM: regular rhythm HEART SOUNDS: S1 normal Extremity: OTHER: Left lower extremity is warmer this morning down to the distal leg region just above the ankle. This is substantially improved as compared to last night. Currently on vancomycin and aztreonam. Wound VAC dressing remains in place. Urinary Catheter Management^: Kaye: Cath Placed During This Visit: no Data : 03/16/19 03:40 03/16/19 03:40 A&P Assessment and plan (1) Post-op bleeding: Will continue supportive measures with volume replacement and pressor support. Her outcomes clearly remains questionable. I have been very sreekanth in my conversations with family concerning this. I believe the next 24 to 48 hours will be a critical time. I greatly appreciate the expertise of our hospitalist colleagues and particularly assistance of Dr. Vijay cano. Status: Acute Attestations Medical Necessity Statement*: Acute massive hemorrhage status post left femoral-popliteal artery bypass approximately 2 weeks ago Time Spent in Patient Care: 16 - 35 minutes Coding Level of Care Code Acute Tire Design Engineer for Chg Fwd Diagnoses Post-op bleeding
[2019-03-16] MEDS: aztreonam 1,000 MG in sodium chloride 0.9% (plus) 50 ML 100 MG IV (07:57)
--- NOTE | 2019-03-16 08:17 | PM.MISC ---
Miscellaneous Note Purpose of Documentation: Dr. Gibson was of great assistance.
[2019-03-16] MEDS: pantoprazole 40 mg SDV IVP (09:47)
[2019-03-16] MEDS: pregabalin 50 mg Capsule PO (09:47)
[2019-03-16] MEDS: atorvastatin 40 mg Tablet 20 MG PO (09:48)
--- NOTE | 2019-03-16 10:11 | PC.PHAR ---
SERUM CREATININE INCREASE NEW VANCOMYCIN DOSE 1000MG Q 24 H TO START @ 03/17 229. TROUGH WILL BE ORDERED @ 03/17 129 PRIOR TO START OF NEW DOSE TO ENSURE PROPER CLEARANCE Pharmacokinetic dosing service Objective: Patient: Floor: Age: 63 yo Serum creatinine: 2.6 mg/dL Height: 64.2 Inches Weight (kg): 100 Assessment: IBW (kg): 55.16 Dosing wt(kg): 100 Estimated Creatinine clearance (ml/min): 24.9 CRCL method: Cockcroft and Gault using adjusted body weight Drug selected: Vancomycin Loading dose (mg): Vd (liters): 70.0 (factor used: 0.7 L/kg) Glen (hr-1): 0.025 Half life (hrs): 27.73 CLvanco= 1.750 L/hr Recommended dose: 1000 mg Interval: 24 hrs Infusion time (hrs): 1 Predicted peak (mcg/mL): 31.3 Predicted trough (mcg/mL): 17.61 Total body weight is being used for vancomycin dosing. Recommendations: Give Vancomycin 1000 mg q 24 hrs with an expected Cpeak of 31.3 mcg/ml and an expected Ctrough of 17.61 mcg/ml Thank you for the consult, will continue to follow.
[2019-03-16] MEDS: phenylephrine inj 25 MG in sodium chloride 0.9% 250 ML 60.6 MG IV (10:38)
[2019-03-16 11:16] LABS: Glucose Point of Care 308 mg/dL (70-110)
--- NOTE | 2019-03-16 12:00 | XR_ITS ---
WS: [id number] CHEST XRAY TECHNIQUE: Portable chest. CLINICAL INFORMATION: acute hemmorhage s/p fem-pop COMPARISON: March 15, 2019 FINDINGS: Endotracheal tube with tip approximately 1.8 cm above the benjie. Enteric tube with tip in distal sto mach. Heart: Cardiomegaly. Lungs: Lungs are clear. No consolidation or pleural effusion. Bones: Normal visualized bony structures. XR/XR chest 1V portable [id number] IMPRESSION: 1. Endotracheal tube with tip 1.8 cm above the benjie. 2. Enteric tube with tip below the diaphragm. 3. No acute pulmonary infiltrates.
[2019-03-16 12:14] LABS: Basophils % 0.2 %; Eosinophils # 0.1 10^3/uL (0.0-0.8); Eosinophils % 0.3 %; Hematocrit 25.5 % (37.0-47.0); Hemoglobin 8.5 g/dL (11.5-15.3); Lymphocytes % 16.3 %; Mean Corpuscular HGB Conc 33.3 g/dL (30.0-36.0); Mean Platelet Volume 11.5 fL (7.4-10.4); Monocytes # 1.3 10^3/uL (0.2-0.9); Monocytes % 7.3 %; Neutrophils # 13.6 10^3/uL (1.8-7.7); Neutrophils % 74.9 %; Nucleated Red Blood Cells # 1.3 /100WBC; Nucleated Red Blood Cells % 7.1 %; Platelet Count 108 10^3/cmm (130-400); Red Blood Count 2.93 10^6/uL (4.1-5.3); Red Cell Distribution Width 15.7 % (12.1-15.1); White Blood Count 18.2 10^3/uL (4.0-10.0)
[2019-03-16 12:16] LABS: ABG PH Result 7.41 (7.35-7.45); Alveolar-Arterial Oxygen Gradi 102.4 mmHg (5-10); Arterial Blood Gas Hematocrit 24.6 % (37-47); Base Excess ABG -7.9 mmol/L (-2.0-2.0); Blood Gas Sample Site ARTLINE; Blood Gas Sample Type Arterial; Blood Gas Tidal Volume 0.4; HCO3 ABG 15.8 mmol/L (22-26); HGB O2 Sat 90.6 % (95-100); Ionized Calcium Level - ABG 0.8 mmol/L (1.1-1.4); Methemoglobin 1.1 % (0.4-1.5); Oxygen Device VENT; Oxygen Saturation ABG 92.6; PO2 ABG 63.3 mmHg (80.0-100.0); Potassium Level - ABG 5.1 mmol/L (3.5-5.0)
[2019-03-16 12:31] LABS: INR 4.34 (0.8-1.2)
[2019-03-16 12:42] LABS: Anion Gap 30.6 (5-19); Blood Urea Nitrogen 49 mg/dL (8-23); Calcium 6.7 mg/dL (8.5-10.5); Carbon Dioxide 17 mmol/L (22-29); Chloride 92 mmol/L (98-107); Glomerular Filtration Rate 13.1 mL/min (90-130); Glucose 316 mg/dL (74-106); Osmolality Calculated 288 mOsm/kg (285-295); Potassium 5.6 mmol/L (3.5-5.1); Sodium 134 mmol/L (136-145)
[2019-03-16 12:42] LABS: Albumin Level 2.2 g/dL (3.5-5.2); Alkaline Phosphatase 153 IU/L (35-105); Globulin 1.8 g/dL (1.3-4.6); Total Bilirubin 0.4 mg/dL (0.15-1.2)
[2019-03-16 12:54] LABS: Alanine Aminotransferase 1958 U/L (0-33)
[2019-03-16 12:55] LABS: Slide Review Slide Review Perform
[2019-03-16 12:59] LABS: Aspartate Amino Transferase 6726 U/L (0-32)
--- NOTE | 2019-03-16 13:03 | PC.CHAP ---
Pastoral Care Encounter/Spiritual Assessment Type of Contact [] Declined needle maker visit [] Patient/Family/Request visit [] Outpatient visit [] Follow-up visit [] Physician referral [] Code/Alert [x] Routine visit [] Staff referral [] Actively dying [] Patient sleeping [] Family support [] [] Out of room [] Palliative care [] [] Receiving care in room [] Pre-surgical visit [] Trauma [] Long length of stay [] ICU visit [] Other: Relational/Emotional Strength [] Patient feels connected with others/family/visitors/staff [] Distress [] Loneliness/isolation [] Abandonment Spirituality of Patient [] Person of Linda [] Attends Uatsdin of their Linda [x] Believes in Prayer [] Reads Bible or Methodist materials [] There are Spiritual issues to be addressed Developer Designer Interventions [x] Prayer [x] Active listening [x] Non-anxious presence [x] Spiritual/emotional support [] Crisis/trauma care [] Spiritual counseling [] Bereavement support [] Provided bereavement packet [] Provided Bible/devotional materials [] Provided toy/stuffed animal, coloring book to patient or family member [] Provided Communion [] Anointing/[place] [] Salvation [x] Completed spiritual assessment [] Other: Impact on Illness or Injury [] Angry [] Fearful [] Anxious [] Often cries [] Exhaustion [] Unable to work [] Unable to attend restorationist [] Unable to walk/stand [] Unable to read [] Unable to drive [] Unable to eat/drink [] Unable to sleep [] Unable to be with family [x] Patient intubated [] Other: Summary Patient was not able to speak, spoke with Time spent with patient 5 minutes
--- NOTE | 2019-03-16 13:55 | PM.CONSULT ---
Providers/Reason For Consult Consulting Physican/Specialty*: Pulmonary critical care medicine Reason for Consult*: Multiorgan failure Attending Physician: Kd Miller MD Primary Care Provider: Consuelo England DO History of Present Illness History of Present Illness Shelby Contreras is a 63 year old female who presented to the hospital yesterday morning with active bleeding from the left femoral-popliteal arterial graft. The patient was taken to the Shortage Worker and had an angiogram performed however no active extravasation was noted. In the postop area the patient was again noted to have bleeding in the wound VAC and she underwent a repeat angiogram which again failed to reveal any active source of bleeding. However, during exploration of the wound active bleeding could be seen from the proximal anastomotic site. Control of the bleeding was obtained by sutures and the patient was then brought to the ICU. When the patient arrived in the ER her systolic blood pressure was in the 60s. When EMS arrived at her home after her called with her losing blood, her systolic blood pressure was also found to be in the 60s. Overnight, the patient was resuscitated with IV fluid, blood products and required pressor support to obtain adequate blood pressure. The patient however has not made any significant urine since she was brought to the ICU. The blood work this morning is consistent with multiorgan failure with significant lactic acidosis. I was asked to evaluate the patient. I had seen and examined the patient in ICU today. The family is at bedside. I had also reviewed the case with the other providers. The patient was on 14 mcg/min of norepinephrine and 120 mcg of phenylephrine with a systolic blood pressure in the 70s. She was also receiving IV fluid at 150 cc an hour. The patient was on volume control mode and was breathing over the vent with a minute ventilation of about 12 L. The patient has also been seen to have bilateral nystagmus with the fast component towards the right and a slow component towards the left. The patient is unresponsive to any pain or vocal stimulus. The patient had not received any significant amount of sedation. The patient is 4.7 L positive since yesterday. I had performed a bedside ultrasound. The patient does not have any significant B-lines, has good ejection fraction without any evidence of right ventricular dilation or dysfunction. The patient has an A-line however the pulse pressure variation could not be assessed because of the patient being active and generating negative inspiratory pressure. Review of Systems Narrative: Unable to obtain because of the patient's clinical condition Meds/Allergies Home Medications and Allergies Home Medications Medication Instructions Recorded Confirmed Type albuterol sulfate 90 mcg/actuation 2 - 4 puff INHALATION QID PRN gm 02/21/19 02/21/19 History aerosol inhaler aripiprazole 2 mg tablet 2 mg PO ONCE 02/21/19 02/21/19 History aspirin 325 mg tablet 325 mg PO ONCE tab 02/21/19 02/21/19 History atenolol 50 mg tablet 50 mg PO ONCE tab 02/21/19 02/21/19 History blood sugar diagnostic #10 each 02/21/19 02/21/19 History citalopram 40 mg tablet 40 mg PO ONCE tab 02/21/19 02/21/19 History ferrous sulfate 325 mg (65 mg 325 mg PO ONCE tab 02/21/19 02/21/19 History iron) tablet fluticasone furoate 100 1 inh INHALATION Q24H 02/21/19 02/21/19 History mcg-vilanterol 25 mcg/dose inhalation powder furosemide 40 mg tablet 80 mg PO BID tab 02/21/19 02/21/19 History hydrocodone 5 mg-acetaminophen 325 1 tab PO Q4H PRN 02/21/19 02/21/19 History mg tablet hydroxyzine HCl 25 mg tablet 25 mg PO BID 02/21/19 02/21/19 History insulin glargine U-300 conc 300 28 unit SUBCUT ONCE 02/21/19 02/21/19 History unit/mL (3 mL) subcutaneous pen insulin lispro 100 unit/mL 10 unit SUBCUT QID ml 02/21/19 02/21/19 History subcutaneous pen ipratropium 0.5 mg-albuterol 3 mg 3 ml INHALATION BID PRN ml 02/21/19 02/21/19 History (2.5 mg base)/3 mL nebulization soln lancets 30 gauge #25 each 02/21/19 02/21/19 History meloxicam 7.5 mg tablet 7.5 mg PO BID PRN tab 02/21/19 02/21/19 History metformin 1,000 mg tablet,extended 1,000 mg PO BID 02/21/19 02/21/19 History release 24hr omega 6-ien-jij-fish oil 1,000 mg 1 cap PO ONCE cap 02/21/19 02/21/19 History (120 mg-180 mg) capsule omeprazole 20 mg capsule,delayed 20 mg PO ONCE cap 02/21/19 02/21/19 History release polyethylene glycol 3350 17 17 gm PO BID 02/21/19 02/21/19 History gram/dose oral powder pramipexole 1 mg tablet 1 mg PO ONCE tab 02/21/19 02/21/19 History pregabalin 50 mg capsule 50 mg PO BID 02/21/19 02/21/19 History ranitidine HCl 150 mg tablet 150 mg PO ONCE PRN tab 02/21/19 02/21/19 History simvastatin 20 mg tablet 20 mg PO .QHS tab 02/21/19 02/21/19 History sitagliptin 100 mg tablet 100 mg PO ONCE 02/21/19 02/21/19 History triamterene 37.5 1 tab PO QAM 02/21/19 02/21/19 History mg-hydrochlorothiazide 25 mg tablet Allergies Allergy/AdvReac Type Severity Reaction Status Date / Time adhesive tape Allergy Unknown Verified 02/16/19 12:33 Penicillins Allergy Unknown Verified 02/16/19 12:33 scopolamine Allergy Unknown Verified 02/16/19 12:33 Current Medications Current Medications Generic Name Dose Route Start Last Admin Trade Name Freq PRN Reason Stop Dose Admin Propofol 1,000 mg in 100 mls @ 0 mls/hr 03/15/19 15:00 03/16/19 07:43 Diprivan IV 0 mcg/kg/min .Q0M PATIENCE 0 mls/hr Titration Protocol Per Protocol Vasopressin 40 unit/ Sodium 40 mls @ 0.03 mls/min 03/16/19 12:30 03/16/19 12:41 Chloride IV 1.8 mls/min CONT PATIENCE Administration Fentanyl 1,000 mcg/ Sodium 100 mls @ 0 mls/hr 03/16/19 12:45 03/16/19 13:00 Chloride IV 1 mcg/hr .Q0M PATIENCE 0.1 mls/hr Administration Protocol Per Protocol Pantoprazole Sodium 40 mg 03/15/19 21:30 03/16/19 09:47 Protonix IVP 40 mg Q12H PATIENCE Administration PFSH Acute PFSH: Statuses (acute, chronic, etc) shown below reflect problem list status as previously entered and may not be historically accurate Medical History Accidental loss of central line (Acute) Arterial thrombosis (Acute) Chronic diastolic CHF (congestive heart failure) (Acute) Chronic venous insufficiency (Acute) COPD (chronic obstructive pulmonary disease) (Acute) Diabetic polyneuropathy associated with type 2 diabetes mellitus (Acute) Dyslipidemia (Acute) Fibromyalgia (Acute) GERD (gastroesophageal reflux disease) (Acute) Major depression, recurrent (Acute) Microcytic anemia (Acute) Multiple lung nodules on CT (Acute) PAD (peripheral artery disease) (Acute) Renovascular hypertension (Acute) Sleep apnea (Acute) Thrombocytopenia (Acute) TIA (transient ischemic attack) (Acute) Surgical History History of femoropopliteal bypass (Acute) Status post femoral-popliteal bypass surgery (Acute) Social History Smoking and tobacco status: unknown if ever smoked Alcohol intake: never Vitals/I&O/Wt Last Vital Signs Temp 99.9 F H 03/16/19 12:00 Pulse 82 03/16/19 12:30 Resp 30 H 03/16/19 13:09 BP 92/46 03/16/19 12:30 Pulse Ox 96 03/16/19 12:00 03/15/19 03/16/19 03/16/19 22:59 06:59 14:59 Intake Total 894.703 / 618.340 8253.323 / 2291.026 3560.727 / 3560.727 Output Total 150 / 150 10 / 160 950 / 950 Balance 744.703 / 866.102 7590.323 / 2131.026 2610.727 / 2610.727 Weight last 48 hrs Weight 220 lb Physical Exam Narrative: EXAM NARRATIVE: General: The patient is intubated and not sedated, spontaneous nystagmus noted in both eyes. The patient is unresponsive to pain or any focal physical stimulus HEENT: Bilateral dilated pupil Neck: Unable to assess JVD because of body habitus Respiratory: Auscultation: Vesicular breath sound, occasional crackles at the bases, no wheezing or rhonchi Cardiovascular: Regular rate and rhythm, S1-S2 present, no murmur, no right ventricular heave, no significant peripheral edema. Abdomen: Soft, sluggish bowel sound Musculoskeletal: Wound VAC in place in the left lower extremity Skin: No rash Neuro: The patient is unresponsive to any physical stimulus, neuro exam is very limited secondary to the clinical condition Urinary Catheter Management^: Kaye: Cath Placed During This Visit: no Data Labs: Other Labs: I have reviewed the patient's data. She has leukocytosis with neutrophilia. Her hemoglobin stable at 8.5. The patient has developed coagulopathy secondary to liver injury. Her ALT and AST levels are in the thousands. She has been hyperglycemic. She is starting to develop hyperkalemia in the setting of acute kidney injury. Her GFR has been 0 since yesterday. Her creatinine has gone up from 1.1-3.5. Her last lactic acid is 9.9. Micro: Micro: I do not see any blood culture orders A&P Assessment and plan (1) Septic shock: Given the patient's hypotension and high pulse pressure she most likely has vasodilatory shock. Given her current condition my suspicion is the patient has septic shock. The source of the sepsis is unclear at this time. However potential culprits include wound infection from the left lower extremity anastomotic site, translocation of the gut bacteria in the setting of hypotension and break of intestinal wall. Her hemoglobin is stable and hemostasis has been achieved since yesterday. There is no evidence to suggest hemorrhagic shock in this patient. There is no evidence of obstructive shock. Neurogenic shock is a possibility however there is no other evidence of autonomic dysregulation at this point. The patient could possibly have chronotropic incompetence as her heart rate continues to be in the 80s in the setting of hypotension. Currently the patient is broadly covered with antibiotic. I will get a set of blood cultures. Status: Acute Code(s): A41.9 - Sepsis, unspecified organism; R65.21 - Severe sepsis with septic shock (2) Multiple organ failure: The patient unfortunately is suffering from multiorgan failure and has high likelihood of mortality. She has organ dysfunction involving the brain, liver, kidney, cardiovascular system. She is coagulopathic from liver dysfunction and has significantly elevated lactic acid level. The patient is not producing any urine. Given her previous history of hypertension, I would attempt a higher blood pressure in the hope of perfusing the kidneys. However she most likely has acute tubular necrosis in the setting of hypotension, hypoxia, shock. Once her hemodynamics are stable, I would attempt a Lasix challenge. Target a map of 75 mmHg or systolic blood pressure more than 100 mmHg. Titrate the norepinephrine to achieve the blood pressure. Start vasopressin 0.03 unit as per sepsis protocol. Stop phenylephrine drip. I am also going to start hydrocortisone 60 mg every 6 hours. I predict the potential of hyperkalemia in the setting of acute kidney injury. Will check the BMP every 6 hours and lactic acid every 6 hours to evaluate for lactate clearance. I am going to sedate the patient with some fentanyl. The patient has alkalosis based on her arterial blood gas data, alkalosis is known to cause cerebral vasospasm and reduce the cerebral blood flow. The patient is going to get an EEG today. We are also getting a CT scan of her head to evaluate for any stroke. We are going to limit IV hydration as overhydration has been associated with higher mortality in ICU patients. The patient is already about 4 L positive. Status: Acute (3) Lactic acidosis: The lactic acidosis probably is multifactorial. Suspect secondary to shock however there is also a possibility that this is due to enhanced glycolysis in the setting of sepsis. I will repeat a lactic acid level in 4 hours. The patient unfortunately has very poor prognosis. I have discussed this with the patient's family present at bedside. I will continue to follow the patient. Thank you for letting me to participate in this very sick patient's care. Status: Acute Code(s): E87.2 - Acidosis Consult Attestations Critical Care Time: Critical Care Time (min): 67 Coding Level of Care Code Acute It Technician for [facility] Kd Diagnoses Septic shock A41.9; R65.21 Multiple organ failure Lactic acidosis E87.2
[2019-03-16] MEDS: insulin regular-human 250 UNIT in sodium chloride 0.9% 250 ML 6 UNIT IV (14:06)
[2019-03-16] MEDS: hydrocortisone 100 mg/2 mL SDV 50 MG IVP ×2 (14:07→18:47)
[2019-03-16] MEDS: ciprofloxacin 400 MG/200 ML PREMIX 200 MG IV (14:08)
[2019-03-16 14:48] LABS: ABG PCO2 23.9 mmHg (35-45); ABG PH Result 7.39 (7.35-7.45); Arterial Blood Gas Hematocrit 28.3 % (37-47); Base Excess ABG -9.2 mmol/L (-2.0-2.0); Blood Gas Sample Site ARTLINE; Blood Gas Sample Type Arterial; Blood Gas Tidal Volume 0.4; HCO3 ABG 14.5 mmol/L (22-26); Oxygen Device VENT; PO2 ABG 87.1 mmHg (80.0-100.0)
[2019-03-16 15:03] LABS: Blood Urea Nitrogen 56 mg/dL (8-23); Calcium 6.7 mg/dL (8.5-10.5); Carbon Dioxide 14 mmol/L (22-29); Chloride 93 mmol/L (98-107); Glomerular Filtration Rate 11.9 mL/min (90-130); Glucose 318 mg/dL (74-106); Osmolality Calculated 283 mOsm/kg (285-295); Sodium 131 mmol/L (136-145)
[2019-03-16 15:08] LABS: Lactic Acid 10.8 mmol/L (0.5-2.2)
--- NOTE | 2019-03-16 15:13 | P.PCN_ITS ---
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
--- NOTE | 2019-03-16 15:19 | PM.MISC ---
Miscellaneous Note Purpose of Documentation: EEG report Note: ORDERING PHYSICIAN: Dr. Mccurdy/Dr. Miller. REASON FOR STUDY: Altered mental status. STUDY: This was a 21 channel digital electroencephalogram performed using the 10-20 international system of electrode placement. This study was performed at the bedside in ICU in a comatose patient. The patient was unresponsive. Artifact from the ventilator and IV lines evident. FINDINGS: The record was flat except for artifact from the ventilator. No brain activity was seen. There was no response to photic stimulation. IMPRESSION: Markedly abnormal EEG suspicious for brain as there was no detectable brain activity. Duration of EE.3
[2019-03-16] MEDS: norepinephrine 8 MG in dextrose 5 % 500 ML 476.3 MG IV (15:52)
--- NOTE | 2019-03-16 15:52 | PM.PN ---
Subjective Subjective: Interval history: Overnight labs H&P and events reviewed. Patient continues to do poorly. Levophed is currently running at 14 mics per minute. Phenylephrine is at 150. Patient was noted not to have any corneal reflexes earlier today. She is currently off sedation but is not following any commands. It is uncertain for how long she was out prior to the surgery. Lactate is at 9.9 trending up. She is developing hyperkalemia and worsening MEI. White blood cell count this morning is at 23. Cefepime Cipro and vancomycin have been started empirically. Spiked a temperature to 102 Fahrenheit. Vitals/I&O/Wt Last Vital Signs Temp 102.0 F H 03/16/19 15:00 Pulse 94 03/16/19 15:00 Resp 30 H 03/16/19 15:22 BP 123/51 03/16/19 15:00 Pulse Ox 94 03/16/19 15:00 03/16/19 03/16/19 03/16/19 06:59 14:59 22:59 Intake Total 1396.323 / 2291.026 4010.465 / 4010.465 2.9 / 4013.365 Output Total 10 / 160 950 / 950 Balance 1386.323 / 2131.026 3060.465 / 3060.465 2.9 / 3063.365 Weight last 48 hrs Weight 99.79 kg Physical Exam Narrative: EXAM NARRATIVE: General intubated, does not awaken to any painful stimuli. HEENT conjunctival edema present. Pupils are mid dilated, not reacting to light. No corneal reflex. CVS S1-S2 is normal Respiratory system bilateral coarse conducted sounds. Abdomen is soft nontender nondistended. Extremities wound VAC in place over left leg. Urinary Catheter Management^: Kaye: Cath Placed During This Visit: no Data : 03/16/19 11:43 03/16/19 14:33 Micro: Microbiology 03/16/19 14:35 Blood Culture - Preliminary Blood SPECIMEN COLLECTED 03/16/19 14:33 Blood Culture - Preliminary Blood SPECIMEN COLLECTED A&P Assessment and plan (1) Post-op bleeding: Status: Acute (2) Accidental loss of central line: Status: Acute Code(s): T82.898A - Other specified complication of vascular prosthetic devices, implants and grafts, initial encounter (3) Status post femoral-popliteal bypass surgery: Status: Acute Code(s): Z95.828 - Presence of other vascular implants and grafts Additional A&P Information Patient likely suffered acute hemorrhagic shock from blood loss at which point EMS was called in. It is unclear how long she had been out at the time when EMS reached her. After surgery yesterday night emergently, she has required IV pressors to maintain hemodynamics. She is currently on 2 pressors Levophed and phenylephrine with increasing doses. Unable to elicit any corneal reflex. Pupils do not react to light on my examination. We will order an EEG for this afternoon. A CT of the brain was ordered but remains pending at this time because of ongoing events. Patient has additionally developed fever of 102 Fahrenheit. Possibility of overlying sepsis cannot be excluded. Patient was on aztreonam and vancomycin. We will change this to cefepime and ciprofloxacin to allow for double gram-negative coverage, Flagyl and IV vancomycin. Nature of her allergy is uncertain per she was reportedly allergic to penicillin as a child. However she has had amoxicillin several times without any issues. We will however continue to use cephalosporins to be extra cautious. Pitch Filler consult with Dr. Everett. Patient continues to be hyperkalemic with worsening MEI and 0 urine output. I am concerned that these findings if they continue to progress patient will need initiation of dialysis. Because of circulatory collapse it may be very difficult to perform HD on her. Prognosis remains extremely guarded. This has been discussed multiple times in the day with the family who remains at bedside. Patient's and daughter are here and acknowledged understanding of the severity of situation. For now they would like to remain full code as they believe this was in keeping with patient's last known wishes. Accidental loss of left-sided central venous access with extravasation into subcutaneous neck and upper chest area Not candidate to be on any kind of anticoagulation after hemorrhagic shock. Currently receiving blood transfusion Close monitoring for left foot CODE STATUS for now remains full code. 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
[2019-03-16] MEDS: metroNIDAZOLE IV 500 MG/100 ML PREMIX 100 MG IV (15:53)
--- NOTE | 2019-03-16 16:47 | P.MISC_ITS ---
Miscellaneous Note Purpose of Documentation: I greatly appreciate the expertise and support of our hospitalist colleagues and Dr. Everett from pulmonary/critical medicine. Levophed is down as her sole alpha agent and she has received volume support as well. Flagyl has been initiated with the presumption of intestinal ischemia. Bedside transthoracic echocardiogram by is consistent with the findings from [place] to monitor and that she appears to have good function. Her cardiac index is over 3 L/min/m?. Her SVR appears to be about 1000. Unfortunately, she does have an increasing lactic acidosis which certainly may suggest ongoing central core ischemia or necrosis. EEG has been completed and other than some port artifact appears to be flat line as interpreted by Dr. Tanner. I have conferred with my colleague by phone. History was reviewed and she also is concerned that I have a protracted hypoten sive nonreversible ischemic event resulting in essentially brain . I have spoken very carefully and frankly with family members at bedside and they appear to be processing this tragic news as best as could be expected. Dr. Tanner has been gracious enough to come to bedside for a more formal exam, though her current impression is that the proceeding events have resulted in a terminal conclusion.
--- NOTE | 2019-03-16 17:15 | P.CONIM_ITS ---
Providers/Reason For Consult Consulting Physican/Specialty*: Angela, cardiothoracic surgery Reason for Consult*: Altered mental status Attending Physician: Kd Miller MD Primary Care Provider: Consuelo England DO History of Present Illness History of Present Illness Shelby Contreras is a 63 year old woman who presented to our emergency room having nearly exsanguinated from an arterial wound in her left groin that was a result of left femoral to distal popliteal bypass that was performed January 23. She had wound breakdown following surgery and had been discharged from [facility] 2 days before her admission here. Her wound VAC had been changed the day before by home health. She was sitting up on the morning of admission and complained of acute bleeding. On arrival of EMS she had a blood pressure of 60 systolic and was still hypotensive on arrival [place] [facility] [place] She was immediately intubated and rapidly transferred to the operating room as soon as it could be done. Dr. Layne and Dr. Miller were able to resuscitate the patient and stop the bleeding but despite fluid resuscitation and pressors she was hypotensive for a prolonged period of time before surgery and during angiogram and emergent treatment. She has not been responsive other than random eye movements and her EEG today appears to show no brain activity. Her laboratory studies and fever indicate that she probably has underlying sepsis. She is still on 15 mcg/h of fentanyl but has been off of propofol and is now on no other sedatives. Her hemoglobin was 7.4 on arrival. She has been severely acidotic on a metabolic basis within the first day and lactate is high. She is no longer making urine. Review of Systems General: Reports: ROS unobtainable due to endotracheal tube (Temperature 102.) Meds/Allergies Home Medications and Allergies Home Medications Medication Instructions Recorded Confirmed Type albuterol sulfate 90 mcg/actuation 2 - 4 puff INHALATION QID PRN gm 02/21/19 02/21/19 History aerosol inhaler aripiprazole 2 mg tablet 2 mg PO ONCE 02/21/19 02/21/19 History aspirin 325 mg tablet 325 mg PO ONCE tab 02/21/19 02/21/19 History atenolol 50 mg tablet 50 mg PO ONCE tab 02/21/19 02/21/19 History blood sugar diagnostic #10 each 02/21/19 02/21/19 History citalopram 40 mg tablet 40 mg PO ONCE tab 02/21/19 02/21/19 History ferrous sulfate 325 mg (65 mg 325 mg PO ONCE tab 02/21/19 02/21/19 History iron) tablet fluticasone furoate 100 1 inh INHALATION Q24H 02/21/19 02/21/19 History mcg-vilanterol 25 mcg/dose inhalation powder furosemide 40 mg tablet 80 mg PO BID tab 02/21/19 02/21/19 History hydrocodone 5 mg-acetaminophen 325 1 tab PO Q4H PRN 02/21/19 02/21/19 History mg tablet hydroxyzine HCl 25 mg tablet 25 mg PO BID 02/21/19 02/21/19 History insulin glargine U-300 conc 300 28 unit SUBCUT ONCE 02/21/19 02/21/19 History unit/mL (3 mL) subcutaneous pen insulin lispro 100 unit/mL 10 unit SUBCUT QID ml 02/21/19 02/21/19 History subcutaneous pen ipratropium 0.5 mg-albuterol 3 mg 3 ml INHALATION BID PRN ml 02/21/19 02/21/19 History (2.5 mg base)/3 mL nebulization soln lancets 30 gauge #25 each 02/21/19 02/21/19 History meloxicam 7.5 mg tablet 7.5 mg PO BID PRN tab 02/21/19 02/21/19 History metformin 1,000 mg tablet,extended 1,000 mg PO BID 02/21/19 02/21/19 History release 24hr omega 0-ggy-jnd-fish oil 1,000 mg 1 cap PO ONCE cap 02/21/19 02/21/19 History (120 mg-180 mg) capsule omeprazole 20 mg capsule,delayed 20 mg PO ONCE cap 02/21/19 02/21/19 History release polyethylene glycol 3350 17 17 gm PO BID 02/21/19 02/21/19 History gram/dose oral powder pramipexole 1 mg tablet 1 mg PO ONCE tab 02/21/19 02/21/19 History pregabalin 50 mg capsule 50 mg PO BID 02/21/19 02/21/19 History ranitidine HCl 150 mg tablet 150 mg PO ONCE PRN tab 02/21/19 02/21/19 History simvastatin 20 mg tablet 20 mg PO .QHS tab 02/21/19 02/21/19 History sitagliptin 100 mg tablet 100 mg PO ONCE 02/21/19 02/21/19 History triamterene 37.5 1 tab PO QAM 02/21/19 02/21/19 History mg-hydrochlorothiazide 25 mg tablet Allergies Allergy/AdvReac Type Severity Reaction Status Date / Time adhesive tape Allergy Unknown Verified 02/16/19 12:33 Penicillins Allergy Unknown Verified 02/16/19 12:33 scopolamine Allergy Unknown Verified 02/16/19 12:33 Current Medications Current Medications Generic Name Dose Route Start Last Admin Trade Name Amariq PRN Reason Stop Dose Admin Hydrocortisone Sodium Succinate 50 mg 03/16/19 13:00 03/16/19 14:07 Solu-Cortef Inj IVP 50 mg Q6H PATIENCE Administration Propofol 1,000 mg in 100 mls @ 0 mls/hr 03/15/19 15:00 03/16/19 07:43 Diprivan IV 0 mcg/kg/min .Q0M PATIENCE 0 mls/hr Titration Protocol Per Protocol Norepinephrine Bitartrate 8 mg 508 mls @ 0 mls/hr 03/16/19 11:45 03/16/19 15:52 / Dextrose IV 125 mcg/min .Q0M PATIENCE 476.3 mls/hr Administration Protocol Per Protocol Vasopressin 40 unit/ Sodium 40 mls @ 0.03 mls/min 03/16/19 12:30 03/16/19 14:39 Chloride IV 0.1 mls/min CONT PATIENCE Infusion Insulin Human Regular 250 unit 252.5 mls @ 0 mls/hr 03/16/19 12:30 03/16/19 15:08 / Sodium Chloride IV 9.6 unit/h .Q0M PATIENCE 9.7 mls/hr Titration Protocol Per Protocol Fentanyl 1,000 mcg/ Sodium 100 mls @ 0 mls/hr 03/16/19 12:45 03/16/19 15:08 Chloride IV 15 mcg/hr .Q0M PATIENCE 1.5 mls/hr Titration Protocol Per Protocol Ciprofloxacin/Dextrose 400 mg in 200 mls @ 200 mls/hr 03/16/19 13:30 03/16/19 15:08 Cipro IV Infused Q24H PATIENCE Infusion Protocol Metronidazole 500 mg in 100 mls @ 100 mls/hr 03/16/19 14:30 03/16/19 15:53 Flagyl Iv IV 100 mls/hr Q8H PATIENCE Administration Protocol Insulin Aspart 0 unit 03/16/19 12:27 03/16/19 16:05 Novolog SUBCUT Not Given WM&BEDTIME PATIENCE Protocol Pantoprazole Sodium 40 mg 03/15/19 21:30 03/16/19 09:47 Protonix IVP 40 mg Q12H PATIENCE Administration PFSH Acute PFSH: Statuses (acute, chronic, etc) shown below reflect problem list status as previously entered and may not be historically accurate Medical History Accidental loss of central line (Acute) Arterial thrombosis (Acute) Chronic diastolic CHF (congestive heart failure) (Acute) Chronic venous insufficiency (Acute) COPD (chronic obstructive pulmonary disease) (Acute) Diabetic polyneuropathy associated with type 2 diabetes mellitus (Acute) Dyslipidemia (Acute) Fibromyalgia (Acute) GERD (gastroesophageal reflux disease) (Acute) Major depression, recurrent (Acute) Microcytic anemia (Acute) Multiple lung nodules on CT (Acute) PAD (peripheral artery disease) (Acute) Renovascular hypertension (Acute) Sleep apnea (Acute) Thrombocytopenia (Acute) TIA (transient ischemic attack) (Acute) Surgical History History of femoropopliteal bypass (Acute) Status post femoral-popliteal bypass surgery (Acute) Social History Smoking and tobacco status: unknown if ever smoked Alcohol intake: never Vitals/I&O/Wt Last Vital Signs Temp 102.1 F H 03/16/19 15:30 Pulse 89 03/16/19 16:00 Resp 30 H 03/16/19 16:00 BP 108/57 03/16/19 16:00 Pulse Ox 94 03/16/19 16:00 03/16/19 03/16/19 03/16/19 06:59 14:59 22:59 Intake Total 1396.323 / 2291.026 3975.165 / 3975.165 99.615 / 4074.780 Output Total 10 / 160 950 / 950 0 / 950 Balance 1386.323 / 2131.026 3025.165 / 3025.165 99.615 / 3124.780 Weight last 48 hrs Weight 220 lb Physical Exam Narrative: EXAM NARRATIVE: Mental status exam: She is breathing over the ventilator. No response to pain in any of the 4 extremities except she had brief extension of the left arm during brow pressure. No response to voice. Cranial nerves: Right pupil 3 mm reactive to light. Left pupil 6 mm nonreactive. Oculocephalic movements absent. Corneal movements absent. No response to brow pressure (no grimace) or pressure behind the mandible. Tongue midline in the mouth. Endotracheal tube in place. Motor: No response to deep pain in any of the 4 extremities. Flaccid throughout. Areflexic throughout. Cardiac exam reveals normal S1 and S2 without murmur or gallop. Chest clear to auscultation. Abdomen soft Extremities: Diffuse edema. Urinary Catheter Management^: Kaye: Cath Placed During This Visit: no Data Micro: Micro: Microbiology 03/16/19 14:35 Blood Culture - Pr eliminary Blood SPECIMEN [facility] 03/16/19 14:33 Blood Culture - Pr eliminary Blood SPECIMEN [facility] A&P Assessment and plan (1) Anoxic encephalopathy: Unfortunate 63-year-old woman who basically exsanguinated before arrival to our emergency room where she was taken immediately to surgery and Dr. Miller underwent the cumbersome task of locating the source of bleeding and stopping her femoral hemorrhage. Unfortunately, she had a prolonged period of hypotension even before arrival and based on examination, she has no significant residual brain function. The lack of corneal responses heralds a poor prognosis and the lack of response to pain and absent eye movements similarly herald a very poor likelihood of any type of recovery. I am concerned that she has anisocoria which may mean asymmetric brain edema or even a focal lesion in the brain but imaging is impossible because she is not stable enough to leave the ICU. She is still on multiple pressors. Her acute renal failure and probable new diagnosis of sepsis are contributors to her poor prognosis. I talked with her daughters, her , her sister and a host of other family members and took time to answer their questions. I reviewed the story with Dr. Miller and talked with him about her EEG findings. I will return in the morning after she is been off fentanyl (she is on a tiny dose) and repeat my exam. Her 's biggest question is what we can do to keep her alive for couple of more days and wants to know if there is additional life support that could be given. The family wants to know if anything could be done to reduce brain edema and I pointed out that we cannot even make a definite diagnosis since she is too unstable to take for CAT scan. Status: Acute Code(s): G93.1 - Anoxic brain damage, not elsewhere classified Consult Attestations Medical Necessity Statement: Acute arterial hemorrhage and sepsis Time Spent in Patient Care: Greater than 35 minutes (>than 50% of time spent in counselling and/or direct pt care on unit) . 60 minutes Critical Care Time: Discussion of brain and lack of significant brain activity with family members Critical Care Time (min): 60 Coding Level of Care Code Acute Motorized Squad Lieutenant for Alvin Yi Diagnoses Anoxic encephalopathy G93.1
[2019-03-16] MEDS: norepinephrine 8 MG in dextrose 5 % 500 ML 514.4 MG IV (18:05)
[2019-03-16] MEDS: cefepime 2,000 MG in sodium chloride 0.9% (plus) 50 ML 100 MG IV (18:05)
[2019-03-16] MEDS: EPINEPHrine 2.5 MG in sodium chloride 0.9% 250 ML 6.1 MG IV (18:29)
[2019-03-16] MEDS: sodium bicarbonate 8.4% 1 mEq/mL 50mL Syr 50 MEQ IVP (18:47)
--- NOTE | 2019-03-16 19:00 | PC.NURSE ---
Dr Everett @ bedside to speak with pt family about further care. GTTs currently Levophed @ 175 mcg, Vasopressing @ 0.03, Epi @ 8 mcg. Pt states they do not want chest compressions or shocking, pt states he wants us to keep her alive until her brother in law can get here . Brother in law currently in [place] driving to hospital. Current vs 85% O2, bp art 87/30, hr 108, ci 2.9, svi, 27, tpri 1475. No urine output for dayshift. Pt not responding to painful stimuli, pupils unequal. Wound vac dressing to left leg C/D/I. Per Dr Everett - restart fentanyl for comfort, keep titrating drips as needed, no cap on levophed, push 0.1-0.2 mg epi as needed.
--- NOTE | 2019-03-16 20:05 | P.PN_ITS ---
Subjective Subjective: Interval history: The patient is currently requiring 3 pressors to maintain acceptable blood pressure. I have talked to the patient's family and explained to them the dire situation that the patient is in. Given her multiorgan failure and progressively worsening lactic acidosis and increasing pressor requirements, the patient has almost 100% calculated mortality. I have also explained to them that if her heart stops it would be futile to attempt resuscitation. The patient's family members agrees with me and at this point would not attempt any resuscitative effort if the patient's heart stops. The family is waiting for a family member to arrive from [place] will continue our supportive therapy till then. Once the family members are all here, will focus on making sure that the patient is comfortable. Vitals/I&O/Wt Last Vital Signs Temp 104.2 F H 03/16/19 17:45 Pulse 94 03/16/19 18:45 Resp 21 H 03/16/19 19:44 BP 76/40 03/16/19 18:45 Pulse Ox 90 03/16/19 17:45 03/16/19 03/16/19 03/16/19 06:59 14:59 22:59 Intake Total 1396.323 / 2291.026 3975.165 / 3975.165 809.113 / 4784.278 Output Total 10 / 160 950 / 950 0 / 950 Balance 1386.323 / 2131.026 3025.165 / 3025.165 809.113 / 3834.278 Weight last 48 hrs Weight 220 lb Physical Exam Urinary Catheter Management^: Kaye: Cath Placed During This Visit: no Data : 03/16/19 11:43 03/16/19 14:33 Micro: Microbiology 03/16/19 14:35 Blood Culture - Preliminary Blood SPECIMEN COLLECTED 03/16/19 14:33 Blood Culture - Preliminary Blood SPECIMEN COLLECTED Attestations Medical Necessity Statement*: Will defer to the primary team Coding Level of Care Code Acute Supply Chain Director for Alvin Yi
[2019-03-16] MEDS: norepinephrine 8 MG in dextrose 5 % 500 ML 762 MG IV (20:12)
--- NOTE | 2019-03-16 21:56 | PC.NURSE ---
Physician notified of acute status in pt heart rhythm. Pt brought out of it by suctioning, blood pressure plummeted during rhythm change - strips in chart, vitals in chart. Family updated on status change.
--- NOTE | 2019-03-16 22:13 | PC.NURSE ---
Pt change in heart rhythm - physician notified. family at bedside. Pt vitals declined rapidly, 2216 pt rate dropped to 60 bpm irregular. At that time, pt instructed this nurse to make pt comfortable, fentanyl dosage increased. MARGE called @ 2233.
--- NOTE | 2019-03-16 23:32 | P.EN_ITS ---
Event Note Event Note: 63-year female who presented to the hospital with hypotensive shock secondary to bleeding from her surgical site, Dr. Miller did exploration and achieved hemostasis, she was transferred to ICU afterwards, she continued to do poorly, she was on multiple vasopressors, multiple organ failure, she stayed intubated and sedated, without much response to the medication, she was seen by retail shift leader, neurologist, hospitalist service was consulted by Dr. Miller. Unfortunately patient on 03/16/2019 at 10:33 PM. Family at the bedside. Their questions were answered. Most likely cause of is hemorrhagic shock
--- NOTE | 2019-03-16 23:38 | PM.DCS ---
Discharge Providers Date of Admission: 03/15/19 13:40 Date of Discharge: 03/16/19 Attending Provider at Admission: Elena Layne MD Attending Provider at Discharge: Kd Miller MD Primary Care Provider: Consuelo England DO Diagnoses at Discharge Discharge Diagnosis (1) Anoxic encephalopathy: Status: Acute (2) Hemorrhagic shock: Status: Acute (3) Lactic acidosis: Status: Acute (4) Multiple organ failure: Status: Acute (5) Post-op bleeding: Status: Acute Reason for Visit Reason for Visit: Reason For Visit: post op bleed Hospital Course Hospital Course: Shelby Contreras is a 63 year old female who has a history of left femoropopliteal bypass in June 2018 and then recently developed leg pain at rest, ultrasound showed femoropopliteal bypass is occluded. She was having difficulty walking in her home from living room to the bathroom. She used a rolling chair to maneuver throughout her kitchen. Left leg is more swollen with edema and extending into the foot. recently had a left femoral popliteal bypass with venous angioplasty at [facility], had wound dehiscence, status post debridement on 03/06 was discharged home on 03/13 from [facility] with wound VAC,& home health services. Today she was sitting on her couch when she started bleeding from her left groin area (home health services recently changed her wound VAC dressing yesterday) EMS was called and she was brought to ER. She was taken straight to the OR Dr. Miller was consulted by ER, they were able to achieve appropriate hemostasis after exploration. Postoperatively she was sent to ICU, she started becoming hypotensive, while she was on norepinephrine, fluids and blood worsening at the bedside, chest x-ray was obtained which did not locate her central line, Dr. Miller evaluated the patient, placed a right femoral venous access. Her left-sided central line that was placed by ER has been dislodged and there is some extravasation of norepinephrine and subcutaneous tissue. There is no active drainage from left-sided triple-lumen. Currently she is getting blood transfusion, fluids, 1 amp of bicarb, vasopressors are being titrated off. Hospital service was requested to co-manage her. 02/23/2018 procedure at [facility] left common femoral artery exposure Left common femoral endarterectomy with vein patch angioplasty Left common femoral to below knee popliteal bypass graft with 6 mm PTFE She had postoperative wound infection excision of skin and subcutaneous tissue and debridement was done with placement of wound VAC on 03/06 2 m blood loss 100 mL Discharge Summary: Patient did not do well overnight, she was suffering from multiorgan failure, severe metabolic acidosis, she was requiring multiple vasopressors, she required blood transfusion, she was seen by a neurologist for anoxic encephalopathy, brim presser and hospitalist team. Unfortunately she from hemorrhagic shock unresponsive to vasopressors and medical treatment. 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 request for service Stat Exams 03/15/19 10:05 Completed XR chest 1V meche ble [id number] Routine Exams 03/16/19 12:00 Completed XR chest 1V meche ble [id number] Urgent Exams 03/15/19 20:46 Completed Pending at discharge Category Date Time Status CT head wo con* 7 0450 Routine Cat Scan 03/16/19 09:11 Ordered EEG electroenceph alogram Routine Exams 03/16/19 11:41 Ordered ABG FULL [Arteria l Blood Gas Full] Routine Lab 03/15/19 14:24 Results Antibody Identifi cation Stat Lab 03/15/19 09:35 Results Antigen Typing Pa tient Stat Lab 03/15/19 09:35 Results BMP [Basic Metabo lic Panel] Q6HR Lab 03/17/19 00:00 Ordered BMP [Basic Metabo lic Panel] Q6HR Lab 03/17/19 06:00 Ordered BMP [Basic Metabo lic Panel] Q6HR Lab 03/17/19 12:00 Ordered BMP [Basic Metabo lic Panel] Q6HR Lab 03/17/19 18:00 Ordered Basic Metabolic P dominique AM LABS Lab 03/17/19 04:00 Ordered Blood Culture Sta t Lab 03/16/19 14:35 Results Complete Blood Co unt w/Auto AM LABS Lab 03/17/19 04:00 Ordered Complete Blood Co unt w/Auto AM LABS Lab 03/17/19 04:00 Ordered Complete Blood Co unt w/Auto AM LABS Lab 03/18/19 04:00 Ordered Lactic Acid Q6HR Lab 03/17/19 00:00 Ordered Lactic Acid Q6HR Lab 03/17/19 06:00 Ordered Lactic Acid Q6HR Lab 03/17/19 12:00 Ordered Lactic Acid Q6HR Lab 03/17/19 18:00 Ordered Leukocyte Reduced RBC Stat Lab 03/15/19 09:35 Results Type and Screen S tat Lab 03/15/19 09:35 Results Vancomycin Trough Timed Lab 03/17/19 01:30 Ordered Labs from last 24 hours 03/16/19 03/16/19 03/16/19 14:37 14:33 14:33 WBC RBC Hgb Hct MCV MCH MCHC RDW Plt Count MPV Neut % (Auto) Lymph % (Auto) [place] % (Auto) Eos % (Auto) Baso % (Auto) Neut # (Auto) Lymph # (Auto) [place] # (Auto) Eos # (Auto) Baso # (Auto) Nucleated RBC % (a uto) Nucleated RBCs # PT INR Specimen Type Arterial Sample Site Artline ABG pH 7.39 ABG pCO2 23.9 L ABG pO2 87.1 ABG HCO3 14.5 L ABG O2 Saturation ABG Base Excess -9.2 L Rafita Test N/a A-a O2 Gradient Hematocrit 28.3 L Hgb O2 Saturation Carboxyhemoglobin Methemoglobin Total Hemoglobin Ionized Calcium Respiration Rate 16.0 O2 Delivery Device Vent Mechanical Rate FiO2 28.0 Tidal Volume 0.4 PEEP 8.0 Center Line Cutter Operator ID cak Sodium 131 L Potassium 6.0 H Chloride 93 L Carbon Dioxide 14 L Anion Gap 30.0 H BUN 56 H Creatinine 3.8 H GFR Calculation 11.9 L Glucose 318 H POC Glucose Calculated Osmolal ity 283 L Lactic Acid 10.8 H* Calcium 6.7 L Magnesium Total Bilirubin Direct Bilirubin AST ALT Alkaline Phosphata se Total Protein Albumin Globulin Blood Type Antibody Screen Antibody Identific ation Antigen Identifica tion Crossmatch 03/16/19 03/16/19 03/16/19 12:05 11:43 11:43 WBC RBC Hgb Hct MCV MCH MCHC RDW Plt Count MPV Neut % (Auto) Lymph % (Auto) [place] % (Auto) Eos % (Auto) Baso % (Auto) Neut # (Auto) Lymph # (Auto) [place] # (Auto) Eos # (Auto) Baso # (Auto) Nucleated RBC % (a uto) Nucleated RBCs # PT 43.30 H INR 4.34 H Specimen Type Arterial Sample Site Artline ABG pH 7.41 ABG pCO2 25.0 L ABG pO2 63.3 L ABG HCO3 15.8 L ABG O2 Saturation 92.6 ABG Base Excess -7.9 L Rafita Test N/a A-a O2 Gradient 102.4 H Hematocrit 24.6 L Hgb O2 Saturation 90.6 L Carboxyhemoglobin 1.0 Methemoglobin 1.1 Total Hemoglobin 8.0 L Ionized Calcium 0.8 L Respiration Rate 16.0 O2 Delivery Device Vent Mechanical Rate FiO2 28.0 Tidal Volume 0.4 PEEP 8.0 Center Line Cutter Operator ID cak Sodium 134.0 134 L Potassium 5.1 H 5.6 H Chloride 92 L Carbon Dioxide 17 L Anion Gap 30.6 H BUN 49 H Creatinine 3.5 H GFR Calculation 13.1 L Glucose 247.0 H 316 H POC Glucose Calculated Osmolal ity 288 Lactic Acid Calcium 6.7 L Magnesium Total Bilirubin Direct Bilirubin AST ALT Alkaline Phosphata se Total Protein Albumin Globulin Blood Type Antibody Screen Antibody Identific ation Antigen Identifica tion Crossmatch 03/16/19 03/16/19 03/16/19 11:43 11:38 11:13 WBC 18.2 H RBC 2.93 L Hgb 8.5 L Hct 25.5 L MCV 87.0 MCH 29.0 MCHC 33.3 RDW 15.7 H Plt Count 108 L MPV 11.5 H Neut % (Auto) 74.9 Lymph % (Auto) 16.3 [place] % (Auto) 7.3 Eos % (Auto) 0.3 Baso % (Auto) 0.2 Neut # (Auto) 13.6 H Lymph # (Auto) 3.0 [place] # (Auto) 1.3 H Eos # (Auto) 0.1 Baso # (Auto) 0.0 Nucleated RBC % (a uto) 7.1 Nucleated RBCs # 1.3 PT INR Specimen Type Sample Site ABG pH ABG pCO2 ABG pO2 ABG HCO3 ABG O2 Saturation ABG Base Excess Rafita Test A-a O2 Gradient Hematocrit Hgb O2 Saturation Carboxyhemoglobin Methemoglobin Total Hemoglobin Ionized Calcium Respiration Rate O2 Delivery Device Mechanical Rate FiO2 Tidal Volume PEEP Center Line Cutter Operator ID Sodium Potassium Chloride Carbon Dioxide Anion Gap BUN Creatinine GFR Calculation Glucose POC Glucose 308 Calculated Osmolal ity Lactic Acid Calcium Magnesium Total Bilirubin 0.4 Direct Bilirubin 0.20 AST 6726 H ALT 1958 H Alkaline Phosphata se 153 H Total Protein 4.0 L Albumin 2.2 L Globulin 1.8 Blood Type Antibody Screen Antibody Identific ation Antigen Identifica tion Crossmatch 03/16/19 03/16/19 03/16/19 05:27 03:40 03:40 WBC RBC Hgb Hct MCV MCH MCHC RDW Plt Count MPV Neut % (Auto) Lymph % (Auto) [place] % (Auto) Eos % (Auto) Baso % (Auto) Neut # (Auto) Lymph # (Auto) [place] # (Auto) Eos # (Auto) Baso # (Auto) Nucleated RBC % (a uto) Nucleated RBCs # PT INR Specimen Type Arterial Sample Site artline ABG pH 7.50 H ABG pCO2 22.6 L ABG pO2 83.8 ABG HCO3 17.7 L ABG O2 Saturation 98.2 ABG Base Excess -4.2 L Rafita Test N/a A-a O2 Gradient 56.4 H Hematocrit 29.2 L Hgb O2 Saturation 97.1 Carboxyhemoglobin 0.7 Methemoglobin 0.4 Total Hemoglobin 9.5 L Ionized Calcium 0.9 L Respiration Rate 28.0 O2 Delivery Device Vent Mechanical Rate 14.0 FiO2 24.0 Tidal Volume 0.5 PEEP 5.0 Center Line Cutter Operator ID hinja Sodium 133.0 134 L Potassium 4.7 5.6 H Chloride 94 L Carbon Dioxide 18 L Anion Gap 27.6 H BUN 32 H Creatinine 2.6 H GFR Calculation 18.5 L Glucose 290.0 H 356 H POC Glucose Calculated Osmolal ity 290 Lactic Acid 9.9 H* Calcium 7.2 L Magnesium 1.7 Total Bilirubin Direct Bilirubin AST ALT Alkaline Phosphata se Total Protein Albumin Globulin Blood Type Antibody Screen Antibody Identific ation Antigen Identifica tion Crossmatch 03/16/19 03/16/19 03/15/19 03:40 03:40 22:30 WBC 26.3 H RBC 3.55 L Hgb 10.1 L Hct 30.2 L MCV 85.1 D MCH 28.5 MCHC 33.4 D RDW 15.1 Plt Count 168 MPV 10.5 H Neut % (Auto) 85.4 Lymph % (Auto) 6.9 [place] % (Auto) 5.4 Eos % (Auto) 0.0 Baso % (Auto) 0.2 Neut # (Auto) 22.4 H Lymph # (Auto) 1.8 [place] # (Auto) 1.4 H Eos # (Auto) 0.0 Baso # (Auto) 0.1 Nucleated RBC % (a uto) 3.5 Nucleated RBCs # 0.9 PT 36.80 H D INR 3.53 H Specimen Type Sample Site ABG pH ABG pCO2 ABG pO2 ABG HCO3 ABG O2 Saturation ABG Base Excess Rafita Test A-a O2 Gradient Hematocrit Hgb O2 Saturation Carboxyhemoglobin Methemoglobin Total Hemoglobin Ionized Calcium Respiration Rate O2 Delivery Device Mechanical Rate FiO2 Tidal Volume PEEP Center Line Cutter Operator ID Sodium Potassium Chloride Carbon Dioxide Anion Gap BUN Creatinine GFR Calculation Glucose POC Glucose 424 Calculated Osmolal ity Lactic Acid Calcium Magnesium Total Bilirubin Direct Bilirubin AST ALT Alkaline Phosphata se Total Protein Albumin Globulin Blood Type Antibody Screen Antibody Identific ation Antigen Identifica tion Crossmatch 03/15/19 09:35 WBC RBC Hgb Hct MCV MCH MCHC RDW Plt Count MPV Neut % (Auto) Lymph % (Auto) [place] % (Auto) Eos % (Auto) Baso % (Auto) Neut # (Auto) Lymph # (Auto) [place] # (Auto) Eos # (Auto) Baso # (Auto) Nucleated RBC % (a uto) Nucleated RBCs # PT INR Specimen Type Sample Site ABG pH ABG pCO2 ABG pO2 ABG HCO3 ABG O2 Saturation ABG Base Excess Rafita Test A-a O2 Gradient Hematocrit Hgb O2 Saturation Carboxyhemoglobin Methemoglobin Total Hemoglobin Ionized Calcium Respiration Rate O2 Delivery Device Mechanical Rate FiO2 Tidal Volume PEEP Center Line Cutter Operator ID Sodium Potassium Chloride Carbon Dioxide Anion Gap BUN Creatinine GFR Calculation Glucose POC Glucose Calculated Osmolal ity Lactic Acid Calcium Magnesium Total Bilirubin Direct Bilirubin AST ALT Alkaline Phosphata se Total Protein Albumin Globulin Blood Type AB Positive Antibody Screen Positive Antibody Identific ation Anti-E Antigen Identifica tion E Antigen - NEGAT SHERLY Crossmatch See Detail Vitals: Last Vital Signs Temp 104.2 F H 03/16/19 17:45 Pulse 105 H 03/16/19 20:15 Resp 20 H 03/16/19 21:39 BP 79/44 03/16/19 20:15 Pulse Ox 92 03/16/19 20:15 Discharge Plan Discharge Patient Disposition: Home, Self-Care Condition: Stable Prescriptions: No Action triamterene-hydrochlorothiazid 37.5-25 mg tablet 1 tab PO QAM RF: 0 Toujeo Max U-300 SoloStar 300 unit/mL (3 mL) insulin pen 28 unit SUBCUT ONCE RF: 0 furosemide [Lasix] 40 mg tablet 80 mg PO BID RF: 0 metformin 1,000 mg tablet extended release 24hr 1,000 mg PO BID RF: 0 simvastatin 20 mg tablet 20 mg PO .QHS RF: 0 aripiprazole [Abilify] 2 mg tablet 2 mg PO ONCE RF: 0 hydroxyzine HCl 25 mg tablet 25 mg PO BID RF: 0 citalopram [Celexa] 40 mg tablet 40 mg PO ONCE RF: 0 meloxicam [Mobic] 7.5 mg tablet 7.5 mg PO BID PRN (Reason: JOINT PAIN) RF: 0 atenolol 50 mg tablet 50 mg PO ONCE RF: 0 Januvia 100 mg tablet 100 mg PO ONCE RF: 0 omeprazole 20 mg capsule,delayed release(DR/EC) 20 mg PO ONCE RF: 0 pramipexole 1 mg tablet 1 mg PO ONCE RF: 0 Breo Ellipta 100-25 mcg/dose blister with device 1 inh INHALATION Q24H RF: 0 insulin lispro [Humalog KwikPen Insulin] 100 unit/mL insulin pen 10 unit SUBCUT QID RF: 0 albuterol sulfate [ProAir HFA] 90 mcg/actuation HFA aerosol inhaler 2 - 4 puff INHALATION QID PRNRF: 0 (DME) OneTouch Ultra Blue Test Strip Strip See Rx Instructions .ROUTE .MEDSUPPLY Qty: 10 RF: 0 (DME) lancets 30 gauge misc See Rx Instructions .ROUTE .MEDSUPPLY Qty: 25 RF: 0 polyethylene glycol 3350 [Miralax] 17 gram/dose powder 17 gm PO BID RF: 0 ipratropium-albuterol 0.5 mg-3 mg(2.5 mg base)/3 mL solution for nebulization 3 ml INHALATION BID PRNRF: 0 ferrous sulfate 325 mg (65 mg iron) tablet 325 mg PO ONCE RF: 0 omega [id number]-nmx-tsy-fish oil [Fish Oil] 1,000 mg (120 mg-180 mg) capsule 1 cap PO ONCE RF: 0 pregabalin [Lyrica] 50 mg capsule 50 mg PO BID RF: 0 hydrocodone-acetaminophen 5-325 mg tablet 1 tab PO Q4H PRNRF: 0 ranitidine HCl [Acid Control (ranitidine)] 150 mg tablet 150 mg PO ONCE PRNRF: 0 aspirin 325 mg tablet 325 mg PO ONCE RF: 0 tramadol 50 mg tablet 50 mg PO BID PRN (Reason: pain) Qty: 60 RF: 0 Referrals: Consuelo England DO [Primary Care Provider] - Discharge Attestations Time Spent in Discharge Care*: less than 30 min Quality Metrics Clinical Quality Measures During this hospital stay, did patient experience: None Coding Level of Care Code Acute 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
--- NOTE | 2019-03-17 00:11 | PC.NURSE ---
Dr. Linares @ bedside. Dr Everett and Dr Miller updated. [facility] contacted and [facility] - both declined. signed release for for Zina Salazar.
[2019-03-17 00:17] LABS: Glucose Point of Care 311 mg/dL (70-110)
[2019-03-17 00:17] LABS: Glucose Point of Care 344 mg/dL (70-110)
[2019-03-17 00:17] LABS: Glucose Point of Care 337 mg/dL (70-110)
[2019-03-17 00:17] LABS: Glucose Point of Care 336 mg/dL (70-110)
[2019-03-17 00:17] LABS: Glucose Point of Care 258 mg/dL (70-110)
[2019-03-17 00:17] LABS: Glucose Point of Care 304 mg/dL (70-110)
[2019-03-17 00:17] LABS: Glucose Point of Care 322 mg/dL (70-110)
[2019-03-17 00:17] LABS: Glucose Point of Care 301 mg/dL (70-110)
--- NOTE | 2019-03-17 02:09 | PC.NURSE ---
Zina Salazar notified of pt expiration. Will call back when family ready for transport. Conference Interpreter notified.
[2019-03-17 03:50] VITALS: PULSE 0; RESP 0; O2SAT 0
[2019-03-22 10:12] LABS: Glucose Point of Care 370 mg/dL (70-110)
== END 2019-03-17 03:56 | disposition expired | DRG 264 ==
LOC: ER 11:04 → ICU 13:40
PROVIDERS: Internal Medicine; Internal Medicine Critical Care Medicine; Student in an Organized Health Care Education/Training Program; Admitting Provider Internal Medicine Cardiovascular Disease; Emergency Provider Family Medicine; Family Provider Family Medicine; PCP Family Medicine; Visit Provider Thoracic Surgery (Cardiothoracic Vascular Surgery)
PROC: 0Y3 Anatomical Regions, Lower Extremities, Control (ICD-10-PCS; principal; 2019-03-15 10:30)
DX: T82.838A Hemorrhage due to vascular prosthetic devices, implants and grafts, initial encounter (principal); I50.32 Chronic diastolic (congestive) heart failure; F33.9 Major depressive disorder, recurrent, unspecified; T82.524A Displacement of infusion catheter, initial encounter; N17.9 Acute kidney failure, unspecified; I82.890 Acute embolism and thrombosis of other specified veins; E87.2 Acidosis; G93.1 Anoxic brain damage, not elsewhere classified; Z68.37 Body mass index [BMI] 37.0-37.9, adult; Y83.2 Surgical operation with anastomosis, bypass or graft as the cause of abnormal reaction of the patient, or of later complication, without mention of misadventure at the time of the procedure; J44.9 Chronic obstructive pulmonary disease, unspecified; E11.42 Type 2 diabetes mellitus with diabetic polyneuropathy; E78.5 Hyperlipidemia, unspecified; M79.7 Fibromyalgia; K21.9 Gastro-esophageal reflux disease without esophagitis; E11.51 Type 2 diabetes mellitus with diabetic peripheral angiopathy without gangrene; Y83.8 Other surgical procedures as the cause of abnormal reaction of the patient, or of later complication, without mention of misadventure at the time of the procedure; E87.5 Hyperkalemia; R57.8 Other shock; E66.9 Obesity, unspecified; Z86.73 Personal history of transient ischemic attack (TIA), and cerebral infarction without residual deficits
CPT/HCPCS: 12345; 36415; 36416; 36430; 36556; 36592; 36600; 51702; 70450; 71045; 75625; 75710; 80048; 80051; 80076; 80500; 82803; 82810; 82962; 83605; 83735; 83986; 85014; 85018; 85025; 85610; 85730; 86850; 86900; 86902; 87040; 94002; 94003; 94799; 96372; 96375; 99283; A4570; C1757; C1769; C1887; C1894; C9113; J0171; J0278; J0360; J0692; J0744; J1644; J1720; J1815; J2001; J2250; J2270; J2370; J2704; J3010; J3370; J3490; J7030; J7050; P9016; P9041; Q9967; S0030